=== PATIENT | female | born 1985 | race Caucasian/White ===

== ENCOUNTER 2016-11-26 00:33 | Emergency (ER) | payer OTHER ==
[2016-11-26 00:40] VITALS: BP 120/77; PULSE 85; TEMP 98; BMI 18.8
--- NOTE | 2016-11-26 00:53 | PDOC ---
History of Present Illness - General Chief Complaint: Alcohol intoxication Stated Complaint: ETOH/HEAD INJURY Time Seen by Provider: 11/26/16 00:48 History Source: Patient Exam Limitations: No Limitations - History of Present Illness Initial Comments: 11/26/16 00:49 This is a 30-year-old female who comes in complaining of tripped and fell. Patient was out drinking and tripped and fell resulting in multiple contusions and abrasions to her body. Patient was here with a friend. Patient said she did not pass out. She did not feel any palpitations shortness of breath chest pain nausea diaphoresis or any associated symptoms at the time she passed out. PAST MEDICAL HISTORY: no significant history PAST SURGICAL HISTORY: no significant history FAMILY HISTORY: no pertinant history SOCIAL HISTORY: Pt lives with family and is employed. MEDICATIONS: reviewed ALLERGIES: As per nursing notes Review of Systems General: No fevers or chills, no weakness, no weight loss HEENT: No change in vision. No sore throat,. No ear pain CardioVascular: No chest pain or shortness of breath Respiratory:No cough, or wheezing. Gastrointestinal: no nausea, vomitting, diarrhea or constipation, No rectal bleeding Genitourinary: No dysuria, hematuria, or frequency Musculoskeletal: No joint or muscle pain or swelling Neurologic: No headache, vertigo, dizziness or loss of consciousness Psychiatric: nor depression Skin: No rashes or easy bruising Endocrine: no increased thirst or abnormal weight change Allergic: no skin or latex allergy All other systems reviewed and normal Exam: General: Well-nourished well-developed individual, no acute distress HEENT: Throat: Normal, tonsils normal, no erythema or exudate Neck: Supple, no meningeal signs, no lymphadenopathy Eyes::Pupils equal reactive and round, extraocular motion intact Chest: Nontender to palpation Cardiac: S1-S2 normal, regular rate and rhythm, no murmurs rubs or gallops Respiratory: Lungs clear to auscultation bilateral Abdomen: Soft, nondistended, normal bowel sounds, nontender to palpation diffusely Extremities: Warm, dry, there is multiple superficial abrasions of bilateral upper and lower extremities. Skin: No rashes Neuro: Alert and oriented x3, nonfocal exam, grossly intact, normal gait Psych: Normal mood and affect Assessment and plan this is a 30-year-old female who comes in with her friend second post tripping and fluent. Patient is intoxicated but denies doing any drugs. Patient abrasions were cleaned, there is no lacerations requiring sutures and patient was discharged to the custody of her mother who came to the emergency room. Past History - Past Medical History Allergies/Adverse Reactions: Allergies Allergy/AdvReac Type Severity Reaction Status Date / Time morphine Allergy Mild Hives Verified 07/29/16 00:51 azithromycin [From Zithromax] Allergy Verified 07/28/16 22:13 cefaclor [From Ceclor] Allergy Verified 07/28/16 22:13 Cephalosporins Allergy Verified 07/28/16 22:13 clarithromycin [From Biaxin] Allergy Verified 07/28/16 22:13 haloperidol [From Haldol] Allergy Verified 07/28/16 22:13 haloperidol lactate Allergy Verified 07/28/16 22:13 [From Haldol] moxifloxacin HCl Allergy Verified 07/28/16 22:13 [From Avelox] Penicillins Allergy Verified 07/28/16 22:13 Home Medications: Ambulatory Orders Xanax PRN 11/26/16 Psychiatric Problems: Yes (ANIXETY) - Reproductive History Therapeutic (s) & number: No - Immunization History Immunization Up to Date: Yes - Psycho/Social/Smoking Cessation Hx Anxiety: Yes Suicidal Ideation: No Smoking History: Never smoked Have you smoked in the past 12 months: Yes Number of Cigarettes Smoked Daily: 20 'Breaking Loose' booklet given: 06/24/16 Hx Alcohol Use: Yes Drug/Substance Use Hx: No Substance Use Type: Alcohol, Marijuana *Physical Exam - Vital Signs Last Vital Signs Temp Pulse Resp BP Pulse Ox 98 F 85 16 120/77 99 11/26/16 00:35 11/26/16 00:35 11/26/16 00:35 11/26/16 00:35 11/26/16 00:35 *DC/Admit/Observation/Transfer Diagnosis at time of Disposition: Multiple bruises, Abrasions of multiple sites Alcoholic intoxication Qualifiers: Complication of substance-induced condition: uncomplicated Qualified Code(s): F10.120 - Alcohol abuse with intoxication, uncomplicated - Discharge Dispostion Disposition: HOME Condition at time of disposition: Stable Admit: No - Patient Instructions Additional Instructions: Someone should check on you once tonight during the night. You should be arousable to your Normal level of arousability for that time of the night. If you have been vomiting, have had a seizure, or you are unable to be aroused or the person checking on you is concerned that there has been a change in your mental status they should call 911 and have you brought back to the emergency department. You can take Tylenol as needed for pain. Return to the emergency department immediately with ANY new, persistent or worsening symptoms. Continue any medications as previously prescribed by your physician. You should follow up with your primary doctor as soon as possible regarding today's emergency department visit. . Please make sure your doctor reviews the results of your emergency evaluation. Thank you for coming to the Emergency Department today for your care. It was a pleasure to see you today. Please note that your evaluation is INCOMPLETE until you follow-up with your doctor.
== END 2016-11-26 01:01 | disposition home or self-care (01) ==
LOC: FER 00:33
DX: T14.8 Other injury of unspecified body region (principal); F10.120 Alcohol abuse with intoxication, uncomplicated; F41.9 Anxiety disorder, unspecified; W01.0XXA Fall on same level from slipping, tripping and stumbling without subsequent striking against object, initial encounter; Y93.89 Activity, other specified; Y92.9 Unspecified place or not applicable
CPT/HCPCS: 99282-25

== ENCOUNTER 2017-08-18 17:25 | Emergency (ER) | payer OTHER ==
[2017-08-18 17:53] VITALS: BP 107/82; PULSE 108; TEMP 97.6; BMI 19.7
--- NOTE | 2017-08-18 18:22 | PDOC ---
History of Present Illness - General History Source: Patient Exam Limitations: No Limitations - History of Present Illness Initial Comments: 08/18/17 18:25 The patient is a 31 year old female, with a significant past medical history of substance abuse, ADHD, anxiety, who presents to the emergency department with, ulcers in the nose and mouth for approx. four days. The patient reports she was recently on a 2 week vacation where she used cocaine daily. The patient reports white discharge from the nose/ mouth ulcers. The patient reports this was her first time using cocaine in approx. 8 years. She denies intravenous drug use. The patient reports she had a previous heroin addiction for 9 years (nasal inhalation only, no IV drug use). However, she reports she has not used heroin for the past two years. The patient reports associated symptoms of congestion. She denies recent fevers, chills, headache or dizziness. She denies recent nausea, vomit, diarrhea or constipation. She denies recent chest pain or shortness of breath. Allergies: As per nursing notes. Past surgical history: None reported. Social history: Current everyday smoker. Pt. reports moderate alcohol use. Pt reports recreational drug use (cocaine/ marijuana). Primary Care Physician: Dr. Lim <Jorge Ignacio - Last Filed: 08/18/17 18:25> <Artie Dupree - Last Filed: 08/18/17 18:32> - General Chief Complaint: Oral Ulcers Stated Complaint: SORES IN MOUTH AND NOSE Time Seen by Provider: 08/18/17 18:22 Past History <Jorge Ignacio - Last Filed: 08/18/17 18:25> - Past Medical History COPD: No Psychiatric Problems: Yes (ANIXETY) Other medical history: PREMATURE - Reproductive History Therapeutic (s) & number: No - Immunization History Immunization Up to Date: Yes - Suicide/Smoking/Psychosocial Hx Smoking History: Current every day smoker Have you smoked in the past 12 months: Yes Number of Cigarettes Smoked Daily: 20 Information on smoking cessation initiated: Yes 'Breaking Loose' booklet given: 08/18/17 Hx Alcohol Use: Yes Drug/Substance Use Hx: Yes Substance Use Type: Alcohol, Cocaine, Heroin, Marijuana <Artie Dupree - Last Filed: 08/18/17 18:32> - Past Medical History Allergies/Adverse Reactions: Allergies Allergy/AdvReac Type Severity Reaction Status Date / Time morphine Allergy Mild Hives Verified 08/18/17 17:39 amoxicillin Allergy Verified 08/18/17 17:39 azithromycin [From Zithromax] Allergy Verified 08/18/17 17:39 cefaclor [From Ceclor] Allergy Verified 08/18/17 17:39 Cephalosporins Allergy Verified 08/18/17 17:39 clarithromycin [From Biaxin] Allergy Verified 08/18/17 17:39 haloperidol [From Haldol] Allergy Verified 08/18/17 17:39 haloperidol lactate Allergy Verified 08/18/17 17:39 [From Haldol] moxifloxacin HCl Allergy Verified 08/18/17 17:39 [From Avelox] Penicillins Allergy Verified 08/18/17 17:39 Home Medications: Ambulatory Orders Alprazolam [Xanax] 0 mg PO TID 08/18/17 Dextroamphetamine/Amphetamine [Adderall 10 mg Tablet] 10 mg PO BID 08/18/17 Mupirocin Ointment [Bactroban] 1 applic TP BID #1 tube 08/18/17 Review of Systems - Review of Systems Comments:: 08/18/17 18:25 CONSTITUTIONAL: Absent: fever, no chills, no fatigue EYES: Absent: visual changes ENT: Present: +Congestion Absent: ear pain, no sore throat CARDIOVASCULAR: Absent: chest pain, no palpitations RESPIRATORY: Absent: cough, no SOB GI: Absent: abdominal pain, no nausea, no vomiting, no constipation, no diarrhea GENITOURINARY: Absent: dysuria, no frequency, no hematuria MUSKULOSKELETAL: Absent: back pain, no arthralgia, no myalgia SKIN: Absent: rash NEURO: Absent: headache <Jorge Ignacio - Last Filed: 08/18/17 18:25> *Physical Exam - Vital Signs Last Vital Signs Temp Pulse Resp BP Pulse Ox 97.6 F 108 H 18 107/82 98 08/18/17 17:26 08/18/17 17:26 08/18/17 17:26 08/18/17 17:26 08/18/17 17:26 <Jorge Ignacio - Last Filed: 08/18/17 18:25> - Vital Signs Last Vital Signs Temp Pulse Resp BP Pulse Ox 97.6 F 108 H 18 107/82 98 08/18/17 17:26 08/18/17 17:26 08/18/17 17:26 08/18/17 17:26 08/18/17 17:26 <Artie Dupree - Last Filed: 08/18/17 18:32> Medical Decision Making - Medical Decision Making 08/18/17 18:31 Also ulcerations of the septum due to snorting cocaine daily for approximately 2 weeks. No septal perforation noted. There is still some sinus congestion. The throat is mildly erythematous but there are no lesions, no exudates, no swelling or masses Bactroban prescribed for the nose. Claritin-D, Jennifer-D, or Zyrtec-D for congestion. Advil or Aleve for discomfort. ENT follow-up as needed. <Artie Dupree - Last Filed: 08/18/17 18:32> *DC/Admit/Observation/Transfer - Attestations Scribe Attestion: 08/18/17 18:26 Documentation prepared by Jorge Ignacio, acting as medical stenographer for Artie Dupree MD. <Jorge Ignacio - Last Filed: 08/18/17 18:25> - Discharge Dispostion Admit: No <Artie Dupree - Last Filed: 08/18/17 18:32> Diagnosis at time of Disposition: Ulcerative nasal mucositis - Discharge Dispostion Disposition: HOME Condition at time of disposition: Stable - Prescriptions Prescriptions: Mupirocin Ointment [Bactroban] 1 applic TP BID #1 tube - Referrals Referrals: Jose Collins MD [Staff Physician] - 1 week - Patient Instructions Additional Instructions: Apply ointment twice daily as directed For nasal congestion, Claritin-D or Jennifer-D or Zyrtec-D may be helpful.
== END 2017-08-18 18:28 | disposition home or self-care (01) ==
LOC: FER 17:25
DX: J34.81 Nasal mucositis (ulcerative) (principal); F19.10 Other psychoactive substance abuse, uncomplicated; F90.9 Attention-deficit hyperactivity disorder, unspecified type; F41.9 Anxiety disorder, unspecified
CPT/HCPCS: 99281-25

== ENCOUNTER 2017-11-16 20:00 | Inpatient (IN) | payer OTHER ==
--- NOTE | 2017-11-16 20:02 | PDOC ---
History of Present Illness - General History Source: Patient, EMS, Friend Exam Limitations: No Limitations - History of Present Illness Initial Comments: 11/16/17 20:43 The patient is a 31 year old female, with a significant PMH of substance abuse, ADHD, anxiety, seizures, asthma who presents to the emergency department via EMS s/p overdose. As per EMS, the patient was found unresponsive at home. EMS states they administered Narcan to the patient and she regained consciousness and ambulated to the ambulance. The patient states she took .5 mg of Xanax and approx 3-4 Opana around 2 or 3 pm. She denies any alcohol use. The patient states after taking the pills she laid down to sleep and awoke to EMS (friend had called EMS when he was unable to awaken the patient). The patient states that at presentation she feels like her bowels are hyperactive like she might have diarrhea. The patient reports lightheadedness, headache, tinnitus, shortness of breath and chest tightness. She denies any recent falls or trauma. The patient also reports a productive cough with greenish yellow sputum for 3 days. The patient states she tried taking OTC Robitussin for the cough earlier today. Denies fever, nausea, vomit, diarrhea and constipation. Denies dysuria, frequency, urgency and hematuria. Allergies: Multiple allergies. As per nursing notes. Past surgical history: None reported. Social history: Current everyday smoker 1 pack per day. Moderate EtOH consumption. Recreational drug use (cocaine/ marijuana). PCP: Dr. Lim <Jorge Ignacio - Last Filed: 11/16/17 20:47> <Peggy Padilla - Last Filed: 11/17/17 06:26> - General Chief Complaint: Substance Abuse Stated Complaint: DRUG ABUSE Time Seen by Provider: 11/16/17 20:01 Past History <Jorge Ignacio - Last Filed: 11/16/17 20:47> - Past Medical History COPD: No Psychiatric Problems: Yes (ANIXETY) - Reproductive History Therapeutic (s) & number: No - Immunization History Immunization Up to Date: Yes - Suicide/Smoking/Psychosocial Hx Smoking History: Current every day smoker Have you smoked in the past 12 months: Yes Number of Cigarettes Smoked Daily: 20 'Breaking Loose' booklet given: 08/18/17 Hx Alcohol Use: Yes Drug/Substance Use Hx: Yes Substance Use Type: Alcohol, Cocaine, Heroin, Marijuana <RandyPeggy Cartagena - Last Filed: 11/17/17 06:26> - Past Medical History Allergies/Adverse Reactions: Allergies Allergy/AdvReac Type Severity Reaction Status Date / Time morphine Allergy Mild Hives Verified 08/18/17 17:39 amoxicillin Allergy Verified 08/18/17 17:39 azithromycin [From Zithromax] Allergy Verified 08/18/17 17:39 cefaclor [From Ceclor] Allergy Verified 08/18/17 17:39 Cephalosporins Allergy Verified 08/18/17 17:39 clarithromycin [From Biaxin] Allergy Verified 08/18/17 17:39 haloperidol [From Haldol] Allergy Verified 08/18/17 17:39 haloperidol lactate Allergy Verified 08/18/17 17:39 [From Haldol] moxifloxacin HCl Allergy Verified 08/18/17 17:39 [From Avelox] Penicillins Allergy Verified 08/18/17 17:39 Home Medications: Ambulatory Orders Alprazolam [Xanax] 0 mg PO TID 08/18/17 Dextroamphetamine/Amphetamine [Adderall 10 mg Tablet] 10 mg PO BID 08/18/17 Albuterol Sulfate Inhaler - [Ventolin Hfa Inhaler -] 2 inh PO Q6H PRN 11/16/17 Oxymorphone HCl 11/16/17 Review of Systems - Review of Systems Comments:: 11/16/17 20:43 GENERAL/CONSTITUTIONAL: +Chills. No fever. No weakness. HEAD, EYES, EARS, NOSE AND THROAT: +Tinnitus. No change in vision. No ear pain or discharge. No sore throat. CARDIOVASCULAR: +Chest tightness. +Shortness of breath. No chest pain. RESPIRATORY: +Productive cough. No hemoptysis. GASTROINTESTINAL: No nausea, vomiting, diarrhea or constipation. GENITOURINARY: No dysuria, frequency, or change in urination. MUSCULOSKELETAL: No joint or muscle swelling or pain. No neck or back pain. SKIN: No rash NEUROLOGIC: +Headache. +Lightheadedness. +Loss of consciousness. No vertigo or change in strength/sensation. ENDOCRINE: No increased thirst. No abnormal weight change. HEMATOLOGIC/LYMPHATIC: No anemia, easy bleeding, or history of blood clots. ALLERGIC/IMMUNOLOGIC: No hives or skin allergy. <Jorge Ignacio - Last Filed: 11/16/17 20:47> *Physical Exam - Vital Signs Last Vital Signs Temp Pulse Resp BP Pulse Ox 99.7 F H 136 H 26 H 126/89 95 11/16/17 20:01 11/16/17 20:01 11/16/17 20:01 11/16/17 20:01 11/16/17 20:01 - Physical Exam Comments: 11/16/17 20:43 GENERAL: Awake, alert, and fully oriented. HEAD: No signs of trauma EYES: +Pupils 4 mm briskly reactive, equal. No abnormal nystagmus. ENT: +Dry mucous membranes. Auricles normal inspection, hearing grossly normal, nares patent, oropharynx clear without exudates. NECK: Normal ROM, supple, no lymphadenopathy, JVD, or masses LUNGS: +Bilateral expiratory wheezing. No rales. HEART: Regular rate and rhythm, normal S1 and S2, no murmurs, rubs or gallops ABDOMEN: Soft, nontender. No guarding, no rebound. EXTREMITIES: Normal range of motion, no edema. No clubbing or cyanosis. No cords, erythema, or tenderness NEUROLOGICAL: Cranial nerves II through XII grossly intact. Normal speech, normal gait SKIN: Warm, Dry, normal turgor, no rashes or lesions noted. <Jorge Ignacio - Last Filed: 11/16/17 20:47> ED Treatment Course - LABORATORY CBC & Chemistry Diagram: 11/16/17 20:45 11/16/17 20:45 <Peggy Pdailla - Last Filed: 11/17/17 06:26> Medical Decision Making - Medical Decision Making Documentation has been prepared under my direction and personally reviewed by me in its entirety. I attest that this documented accurately reflects all work, treatment, procedures and medical decision making performed by me. As noted above, this 31-year-old woman with a history of anxiety/depression, drug abuse, asthma was brought in by EMS after Narcan administration. Patient was found by a friend to be unresponsive after taking "street drugs". EMS was called and Narcan given after patient was found to be unresponsive with labored breathing. Patient had immediate improvement in mental status and was able to walk into ambulance. As noted above, the patient admits only to taking Opana and Xanax for "headache" prior to the episode of unresponsiveness. No apparent previous episode of overdose . Also, the patient has had productive cough for approximately 5 days. She states that she has had intermittent wheezing for several years . Although she smokes one pack of cigarettes per day, she states that she has never had a "asthma attack". Exam as noted. Portable chest x-ray shows no evidence of infiltrate/effusion or other acute abnormality 12-lead electrocardiogram on presentation revealed sinus tachycardia at 118 bpm ; there is poor R-wave progression . No acute ST or T-wave abnormalities evident. Laboratory evaluation shows normal white blood cell count; other than macrocytic /hyperchromic indices, no other significant abnormalities of CBC was seen. Lactic acid prior to IV hydration (patient also received 2 L IV normal saline) was 2.2. No evidence of ethanol was found in her work Tox screen notable for presence of benzodiazepine/opioid/PCP/cocaine/marijuana Because of the patient's bronchospasm, DuoNeb nebulizer treatment was given initially, followed by 2 additional treatments when wheezing was noted to be persistent. Solu-Medrol 125 mg IV administered. Patient was given supplemental oxygenation (4 L NC) on presentation with pulse oximetry in the 94-95 range. On room air trial, pulse oximetry 85-90 range. Because of patient's persistent desaturation on room air along with persistent bronchospasm on exam, the patient requires admission for IV steroids, nebulizer treatments, oxygen therapy and observation. Patient's PMD is Dr. Lim 11/17/17 02:09 Case discussed with SOURAV Salazar. In order to fully evaluate patient's persistent hypoxia, ABG/repeat lactic acid/d-dimer will be drawn. Although the patient initially thought that she had taken Opana (oxymorphone), use of pill identity application revealed that the medication that she actually took was OxyContin 60(3 tablets)[round, red tablet with imprint "OP"] along with the Xanax 0.5 mg Poison control called and case discussed with them.: Because of the presence of long acting narcotic, patient should be observed for at least 12 hours. No other specific recommendations given 11/17/17 03:49 Additional results discussed with SOURAV Salazar. Patient will be admitted in observation status, to telemetry bed. Plan discussed with the patient and her mother. They agreed to admission. Patient has that she will not be able to smoke while she is a patient. She requested that a nicotine patch be prescribed while she is admitted and she was told that this was already discussed with admitting provider. Patient was asked regarding multiple substances found on urine tox screen. She states that only opioid and benzodiazepine were taken during the last 24 hours. She states that PCP was used " last week" and cocaine/marijuana use within the last 2-3 days. She states that although she had a narcotics addiction " many years ago", she does not use narcotics on a regular basis currently. The only recreational drugs that she admits to using routinely are alprazolam ( prescribed), alcohol(1 can of [employer] daily ) and marijuana. She agrees that even occasional use of the other drugs is a problem and states she is willing to address this problem. <Peggy Padilla - Last Filed: 11/17/17 06:26> *DC/Admit/Observation/Transfer - Attestations Scribe Attestion: 11/16/17 20:44 Documentation prepared by Jorge Ignacio, acting as medical office technician for Peggy Padilla MD. <Jorge Ignacio - Last Filed: 11/16/17 20:47> - Discharge Dispostion Admit: Yes <Peggy Padilla - Last Filed: 11/17/17 06:26> Diagnosis at time of Disposition: Drug overdose Acute asthma exacerbation Qualifiers: Asthma severity: moderate Asthma persistence: unspecified Qualified Code(s): J45.901 - Unspecified asthma with (acute) exacerbation - Discharge Dispostion Condition at time of disposition: Guarded
[2017-11-16] MEDS ORDERED: SODIUM CHLORIDE 1,000 ML IV STA (20:08)
[2017-11-16] MEDS ORDERED: ALBUTEROL SO4 2.5/IPRATROPIUM 0.5 INH SOL 3 ML VIAL.NEB. NEB ONE ×4 (20:38→22:00)
[2017-11-16 21:08] LABS: BASO % 2.1 % (0-2.0); EOS % 0.2 % (0-4.5); HEMATOCRIT 38.3 % (32.4-45.2); HEMOGLOBIN 13.4 GM/dl (10.7-15.3); LYMPH % 4.2 % (8-40); MCH 35.3 pg (25.7-33.7); MEAN CELL VOLUME 100.8 fl (80-96); MEAN PLT VOLUME 6.9 fl (7.5-11.1); MONO % 5.2 % (3.8-10.2); NEUT % 88.3 % (42.8-82.8); PLATELET COUNT 221 K/MM3 (134-434); RDW 12.6 % (11.6-15.6); WHITE BLOOD COUNT 9.6 K/mm3 (4.0-10.8)
[2017-11-16 21:21] LABS: ALBUMIN 3.5 g/dl (3.5-5.0); ALK PHOS 84 U/L (32-92); ANION GAP 6 (8-16); BILIRUBIN,TOTAL 0.8 mg/dl (0.2-1.0); CHLORIDE 92 mmol/L (98-107); CO2 33 mmol/L (22-28); CREATININE 0.8 mg/dl (0.6-1.3); GLUCOSE,RANDOM 128 mg/dl (74-106); POTASSIUM 3.7 mmol/L (3.5-5.1); SGOT/AST 33 U/L (10-42); SGPT/ALT 23 U/L (10-40); SODIUM 131 mmol/L (136-145); TOT PROT 6.4 g/dl (6.4-8.3)
[2017-11-16 21:35] LABS: BLOOD UREA NITROGEN < 6 mg/dl (7-18)
[2017-11-16 21:36] LABS: URINE APPEARANCE Clear; URINE BILIRUBIN Negative (NEGATIVE); URINE BLOOD Negative (NEGATIVE); URINE GLUCOSE (UA) 1+ (NEGATIVE); URINE KETONE Negative (NEGATIVE); URINE LEUK ESTERASE Negative (NEGATIVE); URINE NITRITE Negative (NEGATIVE); URINE PROTEIN Trace (NEGATIVE)
[2017-11-16 21:37] LABS: URINE COLOR YELLOW
[2017-11-16 22:31] LABS: METHADONE, UR NEGATIVE ng/ml (CUTOFF=300); URINE AMPHETAMINES NEGATIVE ng/ml (CUTOFF=500); URINE BARBITURATES NEGATIVE ng/ml (CUTOFF=200)
[2017-11-16 22:32] LABS: URINE BENZODIAZEPINES POSITIVE ng/ml (CUTOFF=200)
[2017-11-16 22:33] LABS: COCAINE, UR POSITIVE ng/ml (CUTOFF=300); OPIATES, URI POSITIVE ng/ml (CUTOFF=300); PHENCYCLIDINE,URINE POSITIVE ng/ml (CUTOFF=25)
[2017-11-17] MEDS ORDERED: methylPREDNISolone NA SUCC 125 MG/2 ML VIAL IVPB ONE (00:01)
[2017-11-17] MEDS ORDERED: methylPREDNISolone NA SUCC 125 MG/2 ML VIAL ONE (00:11)
[2017-11-17] MEDS ORDERED: ALBUTEROL SO4 2.5/IPRATROPIUM 0.5 INH SOL 3 ML VIAL.NEB. NEB ONE ×2 (00:11)
[2017-11-17 02:16] LABS: ARTERIAL BLD GAS O2 SATURATION 97.7 % (90-98.9); ARTERIAL BLOOD GAS BASE EXCESS 3.3 meq/l (-2-2); ARTERIAL BLOOD GAS PCO2 42.6 mmHg (35-45); ARTERIAL BLOOD GAS pH 7.43 (7.35-7.45)
[2017-11-17] MEDS ORDERED: SODIUM CHLORIDE 1,000 ML IV SCH (04:00)
[2017-11-17] MEDS ORDERED: MAGNESIUM SULF 50% (8.12 MEQ/2 ML-1 GM VIAL) IVPB ONE (04:26)
[2017-11-17] MEDS: NICOTINE 14 MG/24 HOURS TOPICAL PATCH TD SCH ×2 (04:39→09:09)
[2017-11-17 05:12] VITALS: BMI 22.4
--- NOTE | 2017-11-17 07:16 | HP ---
Admitting History and Physical - Past Medical History ...LMP: 05/31/16 - Smoking History Smoking history: Current every day smoker Have you smoked in the past 12 months: Yes Aproximately how many cigarettes per day: 20 - Alcohol/Substance Use Hx Alcohol Use: Yes Home Medications - Allergies Allergies/Adverse Reactions: Allergies Allergy/AdvReac Type Severity Reaction Status Date / Time morphine Allergy Mild Hives Verified 08/18/17 17:39 amoxicillin Allergy Verified 08/18/17 17:39 azithromycin [From Zithromax] Allergy Verified 08/18/17 17:39 cefaclor [From Ceclor] Allergy Verified 08/18/17 17:39 Cephalosporins Allergy Verified 08/18/17 17:39 clarithromycin [From Biaxin] Allergy Verified 08/18/17 17:39 haloperidol [From Haldol] Allergy Verified 08/18/17 17:39 haloperidol lactate Allergy Verified 08/18/17 17:39 [From Haldol] moxifloxacin HCl Allergy Verified 08/18/17 17:39 [From Avelox] Penicillins Allergy Verified 08/18/17 17:39 - Home Medications Home Medications: Ambulatory Orders Alprazolam [Xanax] 0 mg PO TID 08/18/17 Dextroamphetamine/Amphetamine [Adderall 10 mg Tablet] 10 mg PO BID 08/18/17 Albuterol Sulfate Inhaler - [Ventolin Hfa Inhaler -] 2 inh PO Q6H PRN 11/16/17 Oxymorphone HCl 11/16/17 Physical Examination Vital Signs: Vital Signs Temperature 99.5 F 11/17/17 03:50 Pulse Rate 74 11/17/17 03:50 Respiratory Rate 18 11/17/17 03:50 Blood Pressure 110/58 11/17/17 03:50 O2 Sat by Pulse Oximetry (%) 93 L 11/17/17 03:50 Labs: CBC, BMP 11/16/17 20:45 11/16/17 20:45
[2017-11-17] MEDS: ALBUTEROL SO4 2.5/IPRATROPIUM 0.5 INH SOL 3 ML VIAL.NEB. NEB SCH ×4 (08:04→21:40)
[2017-11-17] MEDS ORDERED: ALPRAZolam 1 MG TABLET PO PRN (08:58)
[2017-11-17] MEDS ORDERED: methylPREDNISolone NA SUCC 40 MG/1 ML VIAL IVPUSH SCH ×2 (09:00→10:00)
[2017-11-17 09:24] LABS: ANION GAP 7 (8-16); CALCIUM 7.8 mg/dl (8.4-10.2); CHLORIDE 96 mmol/L (98-107); CO2 30 mmol/L (22-28); GLUCOSE,RANDOM 172 mg/dl (74-106); POTASSIUM 3.9 mmol/L (3.5-5.1); SODIUM 133 mmol/L (136-145)
[2017-11-17] MEDS: FAMOTIDINE 20 MG TABLET PO SCH ×2 (09:33→21:40)
[2017-11-17] MEDS: methylPREDNISolone NA SUCC 40 MG/1 ML VIAL IVPUSH SCH ×3 (09:34→21:40)
[2017-11-17 09:37] LABS: BLOOD UREA NITROGEN < 6 mg/dl (7-18); CREATININE < 0.8 mg/dl (0.6-1.3)
--- NOTE | 2017-11-17 09:50 | HP ---
CHIEF COMPLAINT: lethargic w/hypoxia PCP: Dr Lim HISTORY OF PRESENT ILLNESS: Patient is a 31 y/o female with a past medical history of asthma, anxiety, adhd, and polysubstance abuse. Patient reports ongoing cough with productive sputum for the past 4 days. She reports the cough was worsening within the past 24 hours and developed pain to the center of the chest after coughing. Patient admits to taking 60mg of oxycontin that she acquired from a friend and her prescribed dose of xanax last evening. She reports laying down to sleep and was awakened by EMS after being administered Narcan. She admits to smoking marijuana and tobacco daily, in addition, she last snorted cocaine 2 days ago. 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 Smokin pack a day of tobacco and addition to daily marijuana use Alcohol:daily drinks "several glasses of mixed drinks" Drugs: cocaine, oxycontin, marijuana Family History: non contributory to this admission Allergies morphine Allergy (Mild, Verified 08/18/17 17:39) Hives amoxicillin Allergy (Verified 08/18/17 17:39) azithromycin [From Zithromax] Allergy (Verified 08/18/17 17:39) cefaclor [From Ceclor] Allergy (Verified 08/18/17 17:39) Cephalosporins Allergy (Verified 08/18/17 17:39) clarithromycin [From Biaxin] Allergy (Verified 08/18/17 17:39) haloperidol [From Haldol] Allergy (Verified 08/18/17 17:39) haloperidol lactate [From Haldol] Allergy (Verified 08/18/17 17:39) moxifloxacin HCl [From Avelox] Allergy (Verified 08/18/17 17:39) Penicillins Allergy (Verified 08/18/17 17:39) HOME MEDICATIONS: Home Medications Medication Instructions Recorded Alprazolam [Xanax] 0 mg PO TID 08/18/17 Dextroamphetamine/Amphetamine 10 mg PO BID 08/18/17 [Adderall 10 mg Tablet] Albuterol Sulfate Inhaler - 2 inh PO Q6H PRN 11/16/17 [Ventolin Hfa Inhaler -] Oxymorphone HCl 11/16/17 REVIEW OF SYSTEMS CONSTITUTIONAL: Absent: fever, chills, diaphoresis, generalized weakness, malaise, loss of appetite, weight change HEENT: Absent: rhinorrhea, nasal congestion, throat pain, throat swelling, difficulty swallowing, mouth swelling, ear pain, eye pain, visual changes CARDIOVASCULAR: Absent: chest pain, syncope, palpitations, irregular heart rate, lightheadedness , peripheral edema RESPIRATORY: present: cough, shortness of breath, wheezing, Absent: dyspnea with exertion, orthopnea,stridor, hemoptysis GASTROINTESTINAL: Absent: abdominal pain, abdominal distension, nausea, vomiting, diarrhea, constipation, melena, hematochezia GENITOURINARY: Absent: dysuria, frequency, urgency, hesitancy, hematuria, flank pain, genital pain MUSCULOSKELETAL: Absent: myalgia, arthralgia, joint swelling, back pain, neck pain SKIN: Absent: rash, itching, pallor HEMATOLOGIC/IMMUNOLOGIC: Absent: easy bleeding, easy bruising, lymphadenopathy, frequent infections ENDOCRINE: Absent: unexplained weight gain, unexplained weight loss, heat intolerance, cold intolerance NEUROLOGIC: Absent: headache, focal weakness or paresthesias, dizziness, unsteady gait, seizure, mental status changes, bladder or bowel incontinence PSYCHIATRIC: Absent: anxiety, depression, suicidal or homicidal ideation, hallucinations. PHYSICAL EXAMINATION Vital Signs - 24 hr 11/16/17 11/16/17 11/16/17 20:01 20:06 20:07 Temperature 99.7 F H Pulse Rate 136 H 136 H Pulse Rate [ Radial] Respiratory 26 H Rate Blood Pressure 126/89 Blood Pressure [Arm] O2 Sat by Pulse 95 80 L 95 Oximetry (%) 11/16/17 11/16/17 11/17/17 21:45 23:32 00:00 Temperature Pulse Rate 105 H Pulse Rate [ 99 H Radial] Respiratory 18 18 Rate Blood Pressure Blood Pressure [Arm] O2 Sat by Pulse 92 L 94 L 85 L Oximetry (%) 11/17/17 11/17/17 11/17/17 00:34 03:49 03:50 Temperature 99.5 F 99.5 F Pulse Rate 74 Pulse Rate [ 90 Radial] Respiratory 18 Rate Blood Pressure 110/58 Blood Pressure 105/75 [Arm] O2 Sat by Pulse 93 L 93 L 93 L Oximetry (%) 11/17/17 08:35 Temperature 97.6 F Pulse Rate 86 Pulse Rate [ Radial] Respiratory 18 Rate Blood Pressure 116/67 Blood Pressure [Arm] O2 Sat by Pulse Oximetry (%) GENERAL: disheveled, poor hygiene, Awake, alert, and fully oriented, in no acute distress. HEAD: Normal with no signs of trauma. EYES: Pupils equal, round and reactive to light, extraocular movements intact, sclera anicteric, conjunctiva clear. No lid lag. EARS, NOSE, THROAT: Ears normal, nares patent, oropharynx clear without exudates. Moist mucous membranes. NECK: Normal range of motion, supple without lymphadenopathy, JVD, or masses. LUNGS: Breath sounds equal, bilateral inspiratory wheeze to apexes, diminished to bases, rr 22, no crackles. No accessory muscle use. HEART: Regular rate and rhythm, normal S1 and S2 without murmur, rub or gallop. ABDOMEN: Soft, nontender, not distended, normoactive bowel sounds, no guarding, no rebound, no masses. No hepatomegaly or splenomegaly. MUSCULOSKELETAL: Normal range of motion at all joints. No bony deformities or tenderness. No CVA tenderness. UPPER EXTREMITIES: 2+ pulses, warm, well-perfused. No cyanosis. No clubbing. No peripheral edema. LOWER EXTREMITIES: 2+ pulses, warm, well-perfused. No calf tenderness. No peripheral edema. NEUROLOGICAL: Cranial nerves II-XII intact. Normal speech. Normal gait. PSYCHIATRIC: Cooperative. Good eye contact. Appropriate mood and affect. SKIN: Warm, dry, normal turgor, no rashes or lesions noted, normal capillary refill. Laboratory Results - last 24 hr 11/16/17 11/16/17 11/16/17 20:45 20:45 20:45 WBC 9.6 D RBC 3.80 Hgb 13.4 D Hct 38.3 D MCV 100.8 H MCH 35.3 H MCHC 35.0 RDW 12.6 Plt Count 221 MPV 6.9 L Neutrophils % 88.3 H Lymphocytes % 4.2 L Monocytes % 5.2 Eosinophils % 0.2 Basophils % 2.1 H D-Dimer Anticoagulation Therapy Puncture Site ABG pH ABG pCO2 at Pt Temp ABG pO2 at Pt Temp ABG HCO3 ABG O2 Sat (Measured) ABG O2 Content ABG Base Excess Taj Test O2 Delivery Device Oxygen Flow Rate Vent Mode Vent Rate Mechanical Rate Pressure Support Vent Sodium 131 L Potassium 3.7 Chloride 92 L Carbon Dioxide 33 H D Anion Gap 6 L BUN < 6 L D Creatinine 0.8 Creat Clearance w eGFR > 60 Random Glucose 128 H D Lactic Acid Calcium 8.0 L Total Bilirubin 0.8 D AST 33 ALT 23 D Alkaline Phosphatase 84 D Total Protein 6.4 Albumin 3.5 Urine Color Urine Appearance Urine pH Ur Specific [place] Urine Protein Urine Glucose (UA) Urine Ketones Urine Blood Urine Nitrite Urine Bilirubin Urine Urobilinogen Ur Leukocyte Esterase Urine HCG, Qual Opiates Screen Methadone Screen Barbiturate Screen Phencyclidine Screen Ur Amphetamines Screen MDMA (Ecstasy) Screen Benzodiazepines Screen Cocaine Screen U Marijuana (THC) Screen Alcohol, Quantitative < 5.0 11/16/17 11/16/17 11/16/17 20:45 21:20 21:20 WBC RBC Hgb Hct MCV MCH MCHC RDW Plt Count MPV Neutrophils % Lymphocytes % Monocytes % Eosinophils % Basophils % D-Dimer Anticoagulation Therapy Puncture Site ABG pH ABG pCO2 at Pt Temp ABG pO2 at Pt Temp ABG HCO3 ABG O2 Sat (Measured) ABG O2 Content ABG Base Excess Taj Test O2 Delivery Device Oxygen Flow Rate Vent Mode Vent Rate Mechanical Rate Pressure Support Vent Sodium Potassium Chloride Carbon Dioxide Anion Gap BUN Creatinine Creat Clearance w eGFR Random Glucose Lactic Acid 2.2 H* Calcium Total Bilirubin AST ALT Alkaline Phosphatase Total Protein Albumin Urine Color Yellow Urine Appearance Clear Urine pH 6.0 Ur Specific [place] 1.020 Urine Protein Trace Urine Glucose (UA) 1+ H Urine Ketones Negative Urine Blood Negative Urine Nitrite Negative Urine Bilirubin Negative Urine Urobilinogen 1.0 Ur Leukocyte Esterase Negative Urine HCG, Qual Negative Opiates Screen Methadone Screen Barbiturate Screen Phencyclidine Screen Ur Amphetamines Screen MDMA (Ecstasy) Screen Benzodiazepines Screen Cocaine Screen U Marijuana (THC) Screen Alcohol, Quantitative 11/16/17 11/17/17 11/17/17 21:20 01:30 01:40 WBC RBC Hgb Hct MCV MCH MCHC RDW Plt Count MPV Neutrophils % Lymphocytes % Monocytes % Eosinophils % Basophils % D-Dimer Anticoagulation Therapy No Result Required. Puncture Site No Result Required. ABG pH 7.43 ABG pCO2 at Pt Temp 42.6 ABG pO2 at Pt Temp 86.0 ABG HCO3 27.5 H ABG O2 Sat (Measured) 97.7 ABG O2 Content 15.2 ABG Base Excess 3.3 H Taj Test No Result Required. O2 Delivery Device No Result Required. Oxygen Flow Rate No Result Required. Vent Mode No Result Required. Vent Rate No Result Required. Mechanical Rate No Result Required. Pressure Support Vent No Result Required. Sodium Potassium Chloride Carbon Dioxide Anion Gap BUN Creatinine Creat Clearance w eGFR Random Glucose Lactic Acid 2.1 H Calcium Total Bilirubin AST ALT Alkaline Phosphatase Total Protein Albumin Urine Color Urine Appearance Urine pH Ur Specific [place] Urine Protein Urine Glucose (UA) Urine Ketones Urine Blood Urine Nitrite Urine Bilirubin Urine Urobilinogen Ur Leukocyte Esterase Urine HCG, Qual Opiates Screen Positive Methadone Screen Negative Barbiturate Screen Negative Phencyclidine Screen Positive Ur Amphetamines Screen Negative MDMA (Ecstasy) Screen Negative Benzodiazepines Screen Positive Cocaine Screen Positive U Marijuana (THC) Screen Positive Alcohol, Quantitative 11/17/17 01:40 WBC RBC Hgb Hct MCV MCH MCHC RDW Plt Count MPV Neutrophils % Lymphocytes % Monocytes % Eosinophils % Basophils % D-Dimer 355 Anticoagulation Therapy Puncture Site ABG pH ABG pCO2 at Pt Temp ABG pO2 at Pt Temp ABG HCO3 ABG O2 Sat (Measured) ABG O2 Content ABG Base Excess Taj Test O2 Delivery Device Oxygen Flow Rate Vent Mode Vent Rate Mechanical Rate Pressure Support Vent Sodium Potassium Chloride Carbon Dioxide Anion Gap BUN Creatinine Creat Clearance w eGFR Random Glucose Lactic Acid Calcium Total Bilirubin AST ALT Alkaline Phosphatase Total Protein Albumin Urine Color Urine Appearance Urine pH Ur Specific [place] Urine Protein Urine Glucose (UA) Urine Ketones Urine Blood Urine Nitrite Urine Bilirubin Urine Urobilinogen Ur Leukocyte Esterase Urine HCG, Qual Opiates Screen Methadone Screen Barbiturate Screen Phencyclidine Screen Ur Amphetamines Screen MDMA (Ecstasy) Screen Benzodiazepines Screen Cocaine Screen U Marijuana (THC) Screen Alcohol, Quantitative ASSESSMENT/PLAN: 1) pulm asthma exacerbation - start solumedrol 40mg qid, with taper as appropriate, symbicort, and standing duonebs - keep spo2 above 92% with supplemental O2 - appreciate pulmonary input 2) psych etoh abuse - patient admits to drinking "several" mixed drinks daily - observe signs of etoh withdrawl poly substance abuse -appreciate the input of Dr Arango addictions specialist anxiety - continue home xanax 1mg tid, medication verified with [facility] [employer] reference # [id number] adhd - patient takes adderall 10mg bid, patient to bring in home medication f/e/n - regular diet - replete lytes prn ppx - lonenox - pepcid - oob - scd dispo: pt requries obsv admission Visit type - Emergency Visit Emergency Visit: Yes ED Registration Date: 11/18/17 Care time: The patient presented to the Emergency Department on the above date and was hospitalized for further evaluation of their emergent condition. - New Patient This patient is new to me today: Yes Date on this admission: 11/20/17 - Critical Care Critical Care patient: No Hospitalist Screening - Colonoscopy Questionnaire Colonoscopy Questionnaire: Colonoscopy Questionnaire - Patient: 50 - 75 years old and never had a screening colonoscopy: No History of colon or rectal polyps, or CA: No History of IBD, Crohn's disease or UC: No History of abdominal radiation therapy as a child: No - Relative: 1 with colon or rectal CA, or polyps at age 60 or younger: No Colon or rectal CA diagnosed at age 45 or younger: No Multiple relatives with colon or rectal CA: No - Outcome: Screening Result: Negative Screen
[2017-11-17] MEDS ORDERED: FOLIC ACID INJECTION - 1 MG, THIAMINE HCL 100 MG, MULTIVIT INJECTION ADULT 10 ML in SOD... IVPB ONE (10:29)
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
[2017-11-17] MEDS ORDERED: ALBUTEROL SO4 18 GM HFA INHALER IH PRN ×2 (11:11→16:02)
[2017-11-17] MEDS: ENOXAPARIN NA (PORCINE) 40 MG/0.4 ML DISP.SYRIN SQ SCH (12:50)
--- NOTE | 2017-11-17 16:11 | CON.PULM ---
Consult Consult Specialty:: PULMONARY Referred by:: TERRY Reason for Consultation:: ASTHMA - History of Present Illness Chief Complaint: SOB/COUGH/WHEEZE History of Present Illness: The patient is a 31 year old female, with a significant PMH of substance abuse, ADHD, anxiety, seizures, asthma who presents to the emergency department via EMS s/p overdose. As per EMS, the patient was found unresponsive at home. EMS states they administered Narcan to the patient and she regained consciousness and ambulated to the ambulance. The patient states she took .5 mg of Xanax and approx 3-4 Opana around 2 or 3 pm. She denies any alcohol use. The patient states after taking the pills she laid down to sleep and awoke to EMS (friend had called EMS when he was unable to awaken the patient). The patient states that at presentation she feels like her bowels are hyperactive like she might have diarrhea. The patient reports lightheadedness, headache, tinnitus, shortness of breath and chest tightness. She denies any recent falls or trauma. The patient also reports a productive cough with greenish yellow sputum for 3 days. The patient states she tried taking OTC Robitussin for the cough earlier today. 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 No: Previously Intubated Gastrointestinal: No: Ascites Hepatobiliary: No: Cirrhosis Renal/: No: Renal Failure ...LMP: 05/31/16 Heme/Onc: No: Anemia Psych: Yes: Addictions - Alcohol/Substance Use Hx Alcohol Use: Yes - Smoking History Smoking history: Current every day smoker Have you smoked in the past 12 months: Yes Aproximately how many cigarettes per day: 20 Home Medications - Allergies Allergies/Adverse Reactions: Allergies Allergy/AdvReac Type Severity Reaction Status Date / Time morphine Allergy Mild Hives Verified 08/18/17 17:39 amoxicillin Allergy Verified 08/18/17 17:39 azithromycin [From Zithromax] Allergy Verified 08/18/17 17:39 cefaclor [From Ceclor] Allergy Verified 08/18/17 17:39 Cephalosporins Allergy Verified 08/18/17 17:39 clarithromycin [From Biaxin] Allergy Verified 08/18/17 17:39 haloperidol [From Haldol] Allergy Verified 08/18/17 17:39 haloperidol lactate Allergy Verified 08/18/17 17:39 [From Haldol] moxifloxacin HCl Allergy Verified 08/18/17 17:39 [From Avelox] Penicillins Allergy Verified 08/18/17 17:39 - Home Medications Home Medications: Ambulatory Orders Alprazolam [Xanax] 0 mg PO TID 08/18/17 Dextroamphetamine/Amphetamine [Adderall 10 mg Tablet] 10 mg PO BID 08/18/17 Albuterol Sulfate Inhaler - [Ventolin Hfa Inhaler -] 2 inh PO Q6H PRN 11/16/17 Oxymorphone HCl 11/16/17 Family Disease History - Family Disease History Family Disease History: Respiratory: Mother Review of Systems - Review of Systems Constitutional: reports: Lethargy, Weakness. denies: Chills, Fever Eyes: denies: Blurred Vision HENT: denies: Difficult Swallowing Neck: denies: Decreased ROM Cardiovascular: reports: Shortness of Breath. denies: Chest Pain Respiratory: reports: Cough, Exercise Intolerance, SOB, SOB on Exertion, Wheezing. denies: Hemoptysis Gastrointestinal: denies: Abdominal Pain Physical Exam Vital Sings: Vital Signs Temperature 97.6 F 11/17/17 08:35 Pulse Rate 88 11/17/17 14:26 Respiratory Rate 18 11/17/17 14:26 Blood Pressure 106/65 11/17/17 14:26 O2 Sat by Pulse Oximetry (%) 81 L 11/17/17 14:26 Constitutional: Yes: Anxious Eyes: Yes: EOM Intact HENT: Yes: Normocephalic Neck: Yes: Trachea Midline Cardiovascular: Yes: Regular Rate and Rhythm Respiratory: Yes: Rhonchi, Wheezes Gastrointestinal: Yes: Normal Bowel Sounds, Soft Edema: No Neurological: Yes: Alert Labs: CBC, BMP 11/16/17 20:45 11/17/17 07:30 ABG Results ABG pH 7.43 (7.35-7.45) 11/17/17 01:30 ABG pCO2 at Pt Temp 42.6 mmHg (35-45) 11/17/17 01:30 ABG pO2 at Pt Temp 86.0 mmHg (80-100) 11/17/17 01:30 ABG HCO3 27.5 meq/L (22-26) H 11/17/17 01:30 ABG O2 Sat (Measured) 97.7 % (90-98.9) 11/17/17 01:30 ABG O2 Content 15.2 % vol (15-22) 11/17/17 01:30 ABG Base Excess 3.3 meq/l (-2-2) H 11/17/17 01:30 REVIEWED Imaging - Results Chest X-ray: Report Reviewed, Image Reviewed Cat Scan: Report Reviewed Problem List - Problems (1) Acute asthma exacerbation Code(s): J45.901 - UNSPECIFIED ASTHMA WITH (ACUTE) EXACERBATION Qualifiers: Asthma severity: moderate Asthma persistence: unspecified Qualified Code( s): J45.901 - Unspecified asthma with (acute) exacerbation (2) Drug overdose Code(s): T50.901A - POISONING BY UNSP DRUG/MEDS/BIOL SUBST, ACCIDENTAL, INIT (3) Alcohol intoxication Code(s): F10.129 - ALCOHOL ABUSE WITH INTOXICATION, UNSPECIFIED Qualifiers: Complication of substance-induced condition: uncomplicated (4) Anxiety Code(s): F41.9 - ANXIETY DISORDER, UNSPECIFIED Assessment/Plan A/E B.ASTHMA OVERDOSE/OPIATES/COCAINE/MARIJUANA SOLUMEDROL/KASI/LAMA/ICS DAILY PEAK FLOW/O2 SUPPLEMENTATION MULTIPLE ANTIBIOTIC ALLERGIES NOTED OBTAIN SPUTUM GRAM STAIN/CULTURE CAN USE SULFA BASED ABS IF NEEDED Nela SUE MD
--- NOTE | 2017-11-17 17:11 | CON.PSY ---
Psychiatry Consult Chief Complaint: Patient seen for anxiety. History nof xanax and she took moms opana by mistake. She denies any suicidal ideas ot plans. Symptoms: reports: Anxiety - Previous Psychiatric Treatment Outpatient: Less than 6 mos ago Inpatient: None - Previous Substance Abuse Treatment Outpatient: None Inpatient: None - Reason for Previous Treatment Reason for Previous Treatment: Anxiety or Panic Disorder, Attention Deficit - Current Medications Current Medications: Active Medications Albuterol Sulfate (Ventolin Hfa Inhaler -) 2 puff IH Q1H PRN PRN Reason: WHEEZING Albuterol/Ipratropium (Duoneb -) 1 amp NEB RQID [facility] Last Admin: 11/17/17 11:17 Dose: 1 amp Alprazolam (Xanax) 1 mg PO Q8H PRN PRN Reason: ANXIETY Last Admin: 11/17/17 11:03 Dose: 1 mg Enoxaparin Sodium (Lovenox -) 40 mg SQ DAILY [facility] Last Admin: 11/17/17 12:50 Dose: 40 mg Famotidine (Pepcid -) 20 mg PO BID [facility] Last Admin: 11/17/17 09:33 Dose: 20 mg Folic Acid 1 mg/ Thiamine HCl 100 mg/ Multivitamins/Minerals 10 ml/ Sodium Chloride 1,000 mls @ 75 mls/hr IVPB ONCE ONE Stop: 11/17/17 23:48 Last Admin: 11/17/17 11:03 Dose: 75 mls/hr Methylprednisolone Sodium Succinate (Solu-Medrol -) 40 mg IVPUSH Q6H-IV [facility] Last Admin: 11/17/17 15:31 Dose: 40 mg Nicotine (Nicoderm Patch -) 14 mg TD DAILY [facility] Last Admin: 11/17/17 09:09 Dose: Not Given Multivit/Folic Acid/Iron ( Vitamins (Sjr) -) 1 tab PO DAILY [facility] Thiamine HCl (Vitamin B1 -) 100 mg PO [facility] - Allergies Allergies: Allergies Allergy/AdvReac Type Severity Reaction Status Date / Time morphine Allergy Mild Hives Verified 08/18/17 17:39 amoxicillin Allergy Verified 08/18/17 17:39 azithromycin [From Zithromax] Allergy Verified 08/18/17 17:39 cefaclor [From Ceclor] Allergy Verified 08/18/17 17:39 Cephalosporins Allergy Verified 08/18/17 17:39 clarithromycin [From Biaxin] Allergy Verified 08/18/17 17:39 haloperidol [From Haldol] Allergy Verified 08/18/17 17:39 haloperidol lactate Allergy Verified 08/18/17 17:39 [From Haldol] moxifloxacin HCl Allergy Verified 08/18/17 17:39 [From Avelox] Penicillins Allergy Verified 08/18/17 17:39 - Current Living Status Usual Living Arrangement: With Parent - Current Mental Status Evaluation Appearance: Well Groomed Attitude: Cooperative - Affect Affect: Constrictive Appropriateness: Appropriate to Content - Mood Mood: Anxious - Speech/Language Expressive: Coherent - Psychomotor Activity Psychomotor Activity: Slowed - Thought Process Thought Process: Intact - Thought Content Hallucinations: Absent Delusions: Absent - Self Perception Self Perception: No Impairment - Cognition Attention: Alert Orientation: Time Memory, Immediate Recall: Intact Memory, Short Term: 3/3 Memory, Remote with Promptin/3 - Concentration Serial Sevens Intact: Yes Simple Calculations Intact: Yes - Abstraction Proverb Interpretation: Intact Judgement: Minimally Impaired - Insight Insight: Intact - Impulse Control Impulse Control: Minimally Impaired - Suicidal Ideation Suicidal Ideation: No - Homicidal Ideation Homicidal Ideation: No Assessment/Plan 1) No further Psych meds needed, Continue with Xanax. 2) will follow up with [facility] upon Discharge.
[2017-11-17] MEDS ORDERED: chlordiazePOXIDE HCL 25 MG CAPSULE PO PRN (19:35)
[2017-11-17] MEDS ORDERED: NICOTINE POLACRILEX 2 MG GUM BUC PRN (19:39)
[2017-11-17] MEDS ORDERED: chlordiazePOXIDE HCL 25 MG CAPSULE PO ONE (20:00)
[2017-11-17] MEDS: NICOTINE 21 MG/24 HOURS TOPICAL PATCH TD SCH (21:02)
[2017-11-17] MEDS: THIAMINE HCL 100 MG TABLET (FP) PO SCH (21:40)
[2017-11-17] MEDS: chlordiazePOXIDE HCL 25 MG CAPSULE PO SCH (22:43)
[2017-11-18] MEDS: methylPREDNISolone NA SUCC 40 MG/1 ML VIAL IVPUSH SCH ×4 (02:00→21:21)
[2017-11-18] MEDS: guaiFENesin 200 MG/10 ML 10 ML UNIT-DOSE CUPS PO PRN ×4 (04:33→23:29)
[2017-11-18] MEDS: chlordiazePOXIDE HCL 25 MG CAPSULE PO SCH ×4 (06:00→22:43)
--- NOTE | 2017-11-18 08:51 | EKG ---
Test Reason : Blood Pressure : / mmHG Vent. Rate : 118 BPM Atrial Rate : 118 BPM P-R Int : 124 ms QRS Dur : 072 ms QT Int : 326 ms P-R-T Axes : 073 074 048 degrees QTc Int : 456 ms SINUS TACHYCARDIA POSSIBLE LEFT ATRIAL ENLARGEMENT SEPTAL INFARCT , AGE UNDETERMINED ABNORMAL ECG NO PREVIOUS ECGS AVAILABLE Confirmed by TANIYA LARRY, JANET ([id number]) on 11/18/2017 8:50:42 AM Referred By: DR PETTIT Confirmed By:JANET MONAHAN MD
[2017-11-18] MEDS: ALBUTEROL SO4 2.5/IPRATROPIUM 0.5 INH SOL 3 ML VIAL.NEB. NEB SCH ×4 (08:54→20:05)
[2017-11-18] MEDS: NICOTINE 21 MG/24 HOURS TOPICAL PATCH TD SCH (09:33)
[2017-11-18] MEDS: FAMOTIDINE 20 MG TABLET PO SCH ×2 (09:33→21:21)
[2017-11-18] MEDS: ENOXAPARIN NA (PORCINE) 40 MG/0.4 ML DISP.SYRIN SQ SCH (09:34)
[2017-11-18] MEDS: PRENATAL VITAMINS W/ FOLIC ACID TABLET (FP) PO SCH (09:37)
--- NOTE | 2017-11-18 11:47 | DS ---
Physical Exam: SUBJECTIVE: Patient seen and examined. Pt states she did not sleep well, she wants to go home, she will see her doctor on monday and is deciding to leave AMA OBJECTIVE: Vital Signs Period Temp Pulse Resp BP Sys/Pratt Pulse Ox Last 24 Hr 98.3 F-98.5 F 73-88 18-19 105-125/59-83 81-96 PE Neuro: alert, awake, cn 2-12intact Pulm: wheezing, + cough CV: s1 s2 rrr no mrg Abd: s nt nd + bs Ext: warm no le edema Laboratory Results - last 24 hr 11/17/17 07:30 Acetaminophen < 2.000 HOSPITAL COURSE: Date of Admission:11/17/17 Date of Discharge: 11/18/17 Minutes to complete discharge: 37 Discharge Summary Reason For Visit: ASTHMA WITH ACUTE EXACERBATION, DRUG OVERDOSE Current Active Problems Acute asthma exacerbation (Acute) Alcohol dependence with uncomplicated withdrawal (Acute) Drug overdose (Acute) Nicotine dependence (Acute) Opioid dependence (Acute) Sedative, hypnotic or anxiolytic dependence with withdrawal, uncomplicated ( Acute) Hospital Course: Hospital Course: Briefly this 31 y/o female with a past medical history of asthma, anxiety, adhd , and polysubstance abuse. Patient reported ongoing cough with productive sputum for the past 4 days, worsening within the past 24 hours and developed pain to the center of the chest after coughing. Patient admits to taking 60mg of oxycontin that she acquired from a friend and her prescribed dose of xanax last evening. She was laying down to sleep and was awakened by EMS after being administered Narcan. She smokes marijuana and tobacco daily, in addition, she last snorted cocaine 2 days ago. Plan: Asthma exacerbation - start solumedrol 40mg qid, with taper as appropriate, symbicort, and standing duonebs - keep spo2 above 92% with supplemental O2 Etoh abuse - Libirum detox per Dr. kennedy Poly substance abuse - Continue home xanax 1mg tid, medication verified with [facility] drafter geophysical reference # [id number] adhd - Patient takes adderall 10mg bid, patient to bring in home medication Dispo: - Pt is signing out AMA risk v benefits explained including sob, acute bronchospasm, GA, acute resp failure and . Pt understands and will return to hospital if needed. Case also discussed with mother. Condition: Guarded - Instructions Referrals: Sumit Lim MD [Primary Care Provider] - Disposition: AGAINST MEDICAL ADVICE - Home Medications Comprehensive Discharge Medication List: Ambulatory Orders Alprazolam [Xanax] 0 mg PO TID 08/18/17 Dextroamphetamine/Amphetamine [Adderall 10 mg Tablet] 10 mg PO BID 08/18/17 Albuterol Sulfate Inhaler - [Ventolin Hfa Inhaler -] 2 inh PO Q6H PRN 11/16/17 Oxymorphone HCl 11/16/17 This patient is new to me today: Yes Date on this admission: 11/18/17 Emergency Visit: Yes ED Registration Date: 11/17/17 Care time: The patient presented to the Emergency Department on the above date and was hospitalized for further evaluation of their emergent condition. Critical Care patient: No - Discharge Referral Referred to [facility] Med P.C.: No
--- NOTE | 2017-11-18 14:38 | PN ---
Progress Note (short form) - Note Progress Note: PULMONARY SLEEPING PRESENTLY COUGHED ALL NIGHT SLEEPING MOST OF THE DAY VSS/AFEBRILE ANICTERIC LESS WHEEZE/RHONCHI S1S2 BS+ NO EDEMA LABS/MEDS/NOTES REVIEWED (1) Acute asthma exacerbation Code(s): J45.901 - UNSPECIFIED ASTHMA WITH (ACUTE) EXACERBATION Qualifiers: Asthma severity: moderate Asthma persistence: unspecified Qualified Code( s): J45.901 - Unspecified asthma with (acute) exacerbation (2) Drug overdose Code(s): T50.901A - POISONING BY UNSP DRUG/MEDS/BIOL SUBST, ACCIDENTAL, INIT (3) Alcohol intoxication Code(s): F10.129 - ALCOHOL ABUSE WITH INTOXICATION, UNSPECIFIED Qualifiers: Complication of substance-induced condition: uncomplicated (4) Anxiety Code(s): F41.9 - ANXIETY DISORDER, UNSPECIFIED Assessment/Plan A/E B.ASTHMA RESOLVING OVERDOSE/OPIATES/COCAINE/MARIJUANA SOLUMEDROL/KASI/LAMA/ICS DAILY PEAK FLOW/O2 SUPPLEMENTATION MULTIPLE ANTIBIOTIC ALLERGIES NOTED OBTAIN SPUTUM GRAM STAIN/CULTURE CAN USE SULFA BASED ABS IF NEEDED Nela SUE MD Problem List - Problems (1) Acute asthma exacerbation Code(s): J45.901 - UNSPECIFIED ASTHMA WITH (ACUTE) EXACERBATION Qualifiers: Asthma severity: moderate Asthma persistence: unspecified Qualified Code( s): J45.901 - Unspecified asthma with (acute) exacerbation (2) Drug overdose Code(s): T50.901A - POISONING BY UNSP DRUG/MEDS/BIOL SUBST, ACCIDENTAL, INIT (3) Alcohol intoxication Code(s): F10.129 - ALCOHOL ABUSE WITH INTOXICATION, UNSPECIFIED Qualifiers: Complication of substance-induced condition: uncomplicated (4) Anxiety Code(s): F41.9 - ANXIETY DISORDER, UNSPECIFIED
[2017-11-18] MEDS ORDERED: BENZOCAINE/MENTH/CETYLPYRD CL 1 EACH LOZENGE MM PRN (17:03)
[2017-11-18] MEDS: THIAMINE HCL 100 MG TABLET (FP) PO SCH (21:21)
[2017-11-19] MEDS ORDERED: ZOLPIDEM TARTRATE 5 MG TABLET PO ONE (00:17)
[2017-11-19] MEDS: methylPREDNISolone NA SUCC 40 MG/1 ML VIAL IVPUSH SCH ×2 (03:10→09:00)
[2017-11-19] MEDS: chlordiazePOXIDE HCL 25 MG CAPSULE PO SCH ×3 (05:30→17:12)
[2017-11-19] MEDS: ALBUTEROL SO4 2.5/IPRATROPIUM 0.5 INH SOL 3 ML VIAL.NEB. NEB SCH ×4 (08:00→20:35)
[2017-11-19] MEDS ORDERED: PT OWN MED DRAWER 7, Y5N ONE ×2 (09:08→11:05)
[2017-11-19] MEDS: PRENATAL VITAMINS W/ FOLIC ACID TABLET (FP) PO SCH (10:00)
[2017-11-19] MEDS: FAMOTIDINE 20 MG TABLET PO SCH ×2 (10:57→22:10)
[2017-11-19] MEDS: NICOTINE 21 MG/24 HOURS TOPICAL PATCH TD SCH (10:58)
[2017-11-19] MEDS: ENOXAPARIN NA (PORCINE) 40 MG/0.4 ML DISP.SYRIN SQ SCH (10:58)
--- NOTE | 2017-11-19 11:54 | PN ---
Physical Exam: SUBJECTIVE: Patient seen and examined. She is feeling better, ambulating the halls. Says she has spoken with her family about decreasing her ETOH. The pills was not her, she never asks for them before they are due and her mother keeps them. OBJECTIVE: Vital Signs Period Temp Pulse Resp BP Sys/Pratt Pulse Ox Last 24 Hr 98.4 F-98.5 F 68-93 18-20 112-125/66-81 96-97 PE Neuro: alert, awake, cn 2-12intact Pulm: mildly tachpneic at rest, mild wheeze CV: s1 s2 rrr no mrg Abd: s nt nd + bs Ext: warm no le edema Active Medications Generic Name Dose Route Start Last Admin Trade Name Freq PRN Reason Stop Dose Admin Albuterol Sulfate 2 puff 11/17/17 16:02 Ventolin Hfa Inhaler - IH Q1H PRN WHEEZING Albuterol/Ipratropium 1 amp 11/17/17 08:00 11/19/17 08:00 Duoneb - NEB 1 amp RQID [facility] Administration Benzocaine/Menthol 1 each 11/18/17 17:03 Cepacol Lozenge - MM Q4H PRN SORE THROAT Chlordiazepoxide HCl 25 mg 11/18/17 23:00 11/19/17 10:57 Librium - PO 11/19/17 17:01 25 mg [id number] [facility]ING Administration Chlordiazepoxide HCl 15 mg 11/19/17 23:00 Librium - PO 11/20/17 17:01 [id number] KING Enoxaparin Sodium 40 mg 11/17/17 11:30 11/19/17 10:58 Lovenox - SQ 40 mg DAILY [facility] Administration Famotidine 20 mg 11/17/17 10:00 11/19/17 10:57 Pepcid - PO 20 mg BID [facility] Administration Guaifenesin 10 ml 11/17/17 22:56 11/18/17 23:29 Robitussin - PO 10 ml Q4H PRN Administration COUGH Methylprednisolone Sodium Succinate 40 mg 11/17/17 09:00 11/19/17 09:00 Solu-Medrol - IVPUSH 40 mg Q6H-IV [facility] Administration Nicotine 21 mg 11/17/17 19:39 11/19/17 10:58 Nicoderm Patch - TD 21 mg DAILY [facility] Administration Nicotine Polacrilex 2 mg 11/17/17 19:39 11/18/17 13:43 Nicorette Gum - BUC 2 mg Q2H PRN Administration NICOTINE REPLACEMENT RX Multivit/Folic Acid/Iron 1 tab 11/18/17 10:00 11/18/17 09:37 Vitamins (Sjr) - PO 1 tab DAILY [facility] Administration Thiamine HCl 100 mg 11/17/17 22:00 11/18/17 21:21 Vitamin B1 - PO 100 mg HS KING Administration Assessment: 31 year old female with a past medical history of asthma, anxiety, adhd, and polysubstance abuse. Patient reports ongoing cough with productive sputum for the past 4 days Plan: 1. Asthma exacerbation - Taper solumedrol 40mg daily, send home with taper tomorrow - Symbicort, and standing duonebs - Stable on RA 2. Etoh abuse - Libirum detox per Dr. kennedy - Denies active withdrawal symptoms 3. Poly substance abuse - Continue home xanax 1mg tid, medication verified with [facility] mechanical project engineer reference # [id number] adhd - Patient takes adderall 10mg bid, patient to bring in home medication Dispo: - Home tomorrow with taper, likely will not want to stay to complete detox Visit type - Emergency Visit Emergency Visit: Yes ED Registration Date: 11/18/17 Care time: The patient presented to the Emergency Department on the above date and was hospitalized for further evaluation of their emergent condition. - New Patient This patient is new to me today: No - Critical Care Critical Care patient: No
--- NOTE | 2017-11-19 13:32 | PN ---
Progress Note (short form) - Note Progress Note: PULMONARY AWAKE /ALERT VSS/AFEBRILE ANICTERIC MINIMAL ANTERIOR EXP WHEEZE S1S2 BS+ NO EDEMA LABS/MEDS/NOTES REVIEWED (1) Acute asthma exacerbation Code(s): J45.901 - UNSPECIFIED ASTHMA WITH (ACUTE) EXACERBATION Qualifiers: Asthma severity: moderate Asthma persistence: unspecified Qualified Code( s): J45.901 - Unspecified asthma with (acute) exacerbation (2) Drug overdose Code(s): T50.1A - POISONING BY UNSP DRUG/MEDS/BIOL SUBST, ACCIDENTAL, INIT (3) Alcohol intoxication Code(s): F10.129 - ALCOHOL ABUSE WITH INTOXICATION, UNSPECIFIED Qualifiers: Complication of substance-induced condition: uncomplicated (4) Anxiety Code(s): F41.9 - ANXIETY DISORDER, UNSPECIFIED Assessment/Plan A/E B.ASTHMA RESOLVING OPIATES/COCAINE/MARIJUANA ABUSE SOLUMEDROL/KASI/LAMA/ICS DAILY PEAK FLOW/O2 SUPPLEMENTATION MULTIPLE ANTIBIOTIC ALLERGIES NOTED COUNSELED ON NICOTINE ABSTINENCE Nela SUE MD Problem List - Problems (1) Acute asthma exacerbation Code(s): J45.901 - UNSPECIFIED ASTHMA WITH (ACUTE) EXACERBATION Qualifiers: Asthma severity: moderate Asthma persistence: unspecified Qualified Code( s): J45.901 - Unspecified asthma with (acute) exacerbation (2) Drug overdose Code(s): T50.1A - POISONING BY UNSP DRUG/MEDS/BIOL SUBST, ACCIDENTAL, INIT (3) Alcohol intoxication Code(s): F10.129 - ALCOHOL ABUSE WITH INTOXICATION, UNSPECIFIED Qualifiers: Complication of substance-induced condition: uncomplicated (4) Anxiety Code(s): F41.9 - ANXIETY DISORDER, UNSPECIFIED
[2017-11-19 20:27] VITALS: PULSE 82
[2017-11-19] MEDS: chlordiazePOXIDE 5 MG CAPSULE PO SCH (22:10)
[2017-11-19] MEDS: THIAMINE HCL 100 MG TABLET (FP) PO SCH (22:10)
[2017-11-19] MEDS ORDERED: SODIUM CHLORIDE 1,000 ML IV STA (22:16)
--- NOTE | 2017-11-19 22:52 | HOSP ---
Subjective - Review of Symptoms Events since last encounter: Hospitalist Encounter Notified by RN that he found two white pills in her tissue box The RN identified the pills as Klonipin 2mg The patient stated it was her boyfriend's The patient reported to the RN that she feels bad and wants to "jump out the window" Plan: Patient placed on 1:1 Observation Psychiatry to be informed of tonight's events by instructor programmable controllers consult No visitors allowed- 2/2 bringing in contraband T now Other Systems: Psych:Tearful, Suicidal Ideation Physical Examination Vital Signs: Vital Signs Temperature 98.1 F 11/19/17 20:26 Pulse Rate 82 11/19/17 20:26 Respiratory Rate 20 11/19/17 20:26 Blood Pressure 104/51 11/19/17 20:26 O2 Sat by Pulse Oximetry (%) 95 11/19/17 20:46 Constitutional: Yes: Anxious, Moderate Distress Eyes: Yes: Conjunctiva Clear, PERRL HENT: Yes: WNL, Atraumatic, Normocephalic Neck: Yes: WNL, Supple, Trachea Midline Cardiovascular: Yes: Regular Rate and Rhythm, S1, S2 Respiratory: Yes: Rhonchi Gastrointestinal: Yes: WNL, Normal Bowel Sounds Peripheral Pulses WNL: Yes Neurological: Yes: Alert, Cran Nerves II-XII Intact ...Motor Strength: WNL Psychiatric: Yes: Alert, Suicidal Ideation Labs: CBC, BMP 11/16/17 20:45 11/17/17 07:30 Laboratory Results - last 24 hr 11/19/17 11/19/17 16:20 19:49 Lactic Acid 5.1 H* 5.1 H* Intake & Output 11/16/17 11/17/17 11/18/17 11/19/17 23:59 23:59 23:59 23:59 Intake Total 2850 1650 350 Balance 2850 1650 350 Weight 52.1 kg 59.357 kg Vital Signs - 24 hr 11/19/17 11/19/17 11/19/17 03:00 06:00 10:00 Temperature 98.3 F Pulse Rate 68 70 Respiratory 20 20 20 Rate Blood Pressure 114/71 118/76 O2 Sat by Pulse 96 96 Oximetry (%) 11/19/17 11/19/17 11/19/17 14:00 20:26 20:46 Temperature 97.7 F 98.1 F Pulse Rate 88 82 Respiratory 16 20 Rate Blood Pressure 120/80 104/51 O2 Sat by Pulse 96 95 Oximetry (%) Current Medications Generic Name Dose Route Start Last Admin Trade Name Freq PRN Reason Stop Dose Admin Albuterol Sulfate 2 puff 11/17/17 16:02 Ventolin Hfa Inhaler - IH Q1H PRN WHEEZING Albuterol/Ipratropium 1 amp 11/17/17 08:00 11/19/17 20:35 Duoneb - NEB Not Given RQID [facility]ING Benzocaine/Menthol 1 each 11/18/17 17:03 Cepacol Lozenge - MM Q4H PRN SORE THROAT Chlordiazepoxide HCl 15 mg 11/19/17 23:00 11/19/17 22:10 Librium - PO 11/20/17 17:01 15 mg [id number] KING Administration Enoxaparin Sodium 40 mg 11/17/17 11:30 11/19/17 10:58 Lovenox - SQ 40 mg DAILY [facility] Administration Famotidine 20 mg 11/17/17 10:00 11/19/17 22:10 Pepcid - PO 20 mg BID [facility] Administration Guaifenesin 10 ml 11/17/17 22:56 11/18/17 23:29 Robitussin - PO 10 ml Q4H PRN Administration COUGH Sodium Chloride 1,000 mls @ 100 mls/hr 11/19/17 23:15 Normal Saline - IV ASDIR KING Melatonin 5 mg 11/19/17 23:24 Melatonin PO HS PRN INSOMNIA Methylprednisolone Sodium Succinate 40 mg 11/20/17 10:00 Solu-Medrol - IVPUSH DAILY [facility] Nicotine 21 mg 11/17/17 19:39 11/19/17 10:58 Nicoderm Patch - TD 21 mg DAILY [facility] Administration Nicotine Polacrilex 2 mg 11/17/17 19:39 11/18/17 13:43 Nicorette Gum - BUC 2 mg Q2H PRN Administration NICOTINE REPLACEMENT RX Multivit/Folic Acid/Iron 1 tab 11/18/17 10:00 11/19/17 10:00 Vitamins (Sjr) - PO 1 tab DAILY [facility] Administration Thiamine HCl 100 mg 11/17/17 22:00 11/19/17 22:10 Vitamin B1 - PO 100 mg HS KING Administration
[2017-11-19] MEDS ORDERED: SODIUM CHLORIDE 1,000 ML IV SCH (23:15)
[2017-11-19] MEDS ORDERED: MELATONIN 5 MG TABLETS PO PRN (23:24)
[2017-11-20 00:05] VITALS: BP 120/83; TEMP 98.4
[2017-11-20] MEDS: guaiFENesin 200 MG/10 ML 10 ML UNIT-DOSE CUPS PO PRN ×2 (01:05→05:23)
[2017-11-20] MEDS: chlordiazePOXIDE 5 MG CAPSULE PO SCH (05:23)
[2017-11-20 08:17] LABS: BASO % 0.3 % (0-2.0); EOS % 0.3 % (0-4.5); HEMATOCRIT 37.7 % (32.4-45.2); HEMOGLOBIN 12.7 GM/dl (10.7-15.3); LYMPH % 24.6 % (8-40); MCH 34.5 pg (25.7-33.7); MCHC 33.6 g/dl (32.0-36.0); MEAN CELL VOLUME 102.4 fl (80-96); MEAN PLT VOLUME 6.9 fl (7.5-11.1); NEUT % 68.8 % (42.8-82.8); PLATELET COUNT 248 K/MM3 (134-434); RBC 3.68 M/mm3 (3.60-5.2); RDW 13.7 % (11.6-15.6); WHITE BLOOD COUNT 7.7 K/mm3 (4.0-10.8)
[2017-11-20 08:21] LABS: ANION GAP 4 (8-16); BLOOD UREA NITROGEN 9 mg/dl (7-18); CALCIUM 7.6 mg/dl (8.4-10.2); CHLORIDE 109 mmol/L (98-107); CO2 24 mmol/L (22-28); CREATININE 0.7 mg/dl (0.6-1.3); GLUCOSE,RANDOM 85 mg/dl (74-106); POTASSIUM 3.3 mmol/L (3.5-5.1); SODIUM 137 mmol/L (136-145)
[2017-11-20] MEDS: ALBUTEROL SO4 2.5/IPRATROPIUM 0.5 INH SOL 3 ML VIAL.NEB. NEB SCH (08:55)
[2017-11-20] MEDS ORDERED: PT OWN MED DRAWER 7, Y5N ONE (09:06)
[2017-11-20] MEDS ORDERED: POTASSIUM CHLORIDE TABS 20 MEQ TABLET.ER (FP) PO ONE (09:15)
[2017-11-20] MEDS ORDERED: methylPREDNISolone NA SUCC 40 MG/1 ML VIAL IVPUSH SCH (10:00)
--- NOTE | 2017-11-20 10:19 | PN ---
Progress Note (short form) - Note Progress Note: Patient seen for psych follow up. Apparantly, she said she wanted to jump out of the window because she wanted to smoke. MS: alert, oriented, I don.t want to , I never wanted to kill my self. I am ok. plan> d/c 1:1 Patient is not suicidal, can be discharged when medically stable.
--- NOTE | 2017-11-20 10:56 | PN ---
Physical Exam: SUBJECTIVE: Patient seen and examined, sitting up in bed, reports feeling well , wants to go home. OBJECTIVE:31 year old female with a past medical history of asthma, anxiety, adhd, and polysubstance abuse. patient was admitted from the emergency department for emergent condition. Vital Signs Period Temp Pulse Resp BP Sys/Pratt Pulse Ox Last 24 Hr 97.7 F-98.4 F 82-88 16-20 104-120/51-83 95-96 GENERAL: The patient is awake, alert, and fully oriented, in no acute distress. HEAD: Normal with no signs of trauma. EYES: PERRL, extraocular movements intact, sclera anicteric, conjunctiva clear. No ptosis. ENT: Ears normal, nares patent, oropharynx clear without exudates, moist mucous membranes. NECK: Trachea midline, full range of motion, supple. LUNGS: Breath sounds equal, clear to auscultation bilaterally, no wheezes, no crackles, no accessory muscle use. HEART: Regular rate and rhythm, S1, S2 without murmur, rub or gallop. ABDOMEN: Soft, nontender, nondistended, normoactive bowel sounds, no guarding, no rebound, no hepatosplenomegaly, no masses. EXTREMITIES: 2+ pulses, warm, well-perfused, no edema. NEUROLOGICAL: Cranial nerves II through XII grossly intact. Normal speech, gait not observed. PSYCH: Normal mood, normal affect. SKIN: Warm, dry, normal turgor, no rashes or lesions noted Laboratory Results - last 24 hr 11/19/17 11/19/17 11/20/17 16:20 19:49 02:00 WBC RBC Hgb Hct MCV MCH MCHC RDW Plt Count MPV Neutrophils % Lymphocytes % Monocytes % Eosinophils % Basophils % Sodium Potassium Chloride Carbon Dioxide Anion Gap BUN Creatinine Random Glucose Lactic Acid 5.1 H* 5.1 H* 2.7 H* Calcium Magnesium 11/20/17 11/20/17 11/20/17 07:15 07:15 07:15 WBC 7.7 RBC 3.68 Hgb 12.7 Hct 37.7 MCV 102.4 H MCH 34.5 H MCHC 33.6 RDW 13.7 Plt Count 248 MPV 6.9 L Neutrophils % 68.8 Lymphocytes % 24.6 Monocytes % 6.0 Eosinophils % 0.3 Basophils % 0.3 Sodium 137 Potassium 3.3 L Chloride 109 H D Carbon Dioxide 24 Anion Gap 4 L BUN 9 D Creatinine 0.7 Random Glucose 85 D Lactic Acid 1.4 Calcium 7.6 L Magnesium 11/20/17 07:15 WBC RBC Hgb Hct MCV MCH MCHC RDW Plt Count MPV Neutrophils % Lymphocytes % Monocytes % Eosinophils % Basophils % Sodium Potassium Chloride Carbon Dioxide Anion Gap BUN Creatinine Random Glucose Lactic Acid Calcium Magnesium 1.8 Active Medications Generic Name Dose Route Start Last Admin Trade Name Freq PRN Reason Stop Dose Admin Albuterol Sulfate 2 puff 11/17/17 16:02 Ventolin Hfa Inhaler - IH Q1H PRN WHEEZING Albuterol/Ipratropium 1 amp 11/17/17 08:00 11/20/17 08:55 Duoneb - NEB 1 amp RQID KING Administration Benzocaine/Menthol 1 each 11/18/17 17:03 Cepacol Lozenge - MM Q4H PRN SORE THROAT Chlordiazepoxide HCl 15 mg 11/19/17 23:00 11/20/17 05:23 Librium - PO 11/20/17 17:01 15 mg [id number] KING Administration Enoxaparin Sodium 40 mg 11/17/17 11:30 11/19/17 10:58 Lovenox - SQ 40 mg DAILY [facility]ING Administration Famotidine 20 mg 11/17/17 10:00 11/19/17 22:10 Pepcid - PO 20 mg BID KING Administration Guaifenesin 10 ml 11/17/17 22:56 11/20/17 05:23 Robitussin - PO 10 ml Q4H PRN Administration COUGH Sodium Chloride 1,000 mls @ 100 mls/hr 11/19/17 23:15 11/20/17 00:59 Normal Saline - IV 100 mls/hr ASDIR KING Administration Melatonin 5 mg 11/19/17 23:24 11/20/17 01:01 Melatonin PO 5 mg HS PRN Administration INSOMNIA Methylprednisolone Sodium Succinate 40 mg 11/20/17 10:00 Solu-Medrol - IVPUSH DAILY KING Nicotine 21 mg 11/17/17 19:39 11/19/17 10:58 Nicoderm Patch - TD 21 mg DAILY [facility]ING Administration Nicotine Polacrilex 2 mg 11/17/17 19:39 04/21/18 13:43 Nicorette Gum - BUC 2 mg Q2H PRN Administration NICOTINE REPLACEMENT RX Multivit/Folic Acid/Iron 1 tab 11/18/17 10:00 11/19/17 10:00 Vitamins (Sjr) - PO 1 tab DAILY KING Administration Thiamine HCl 100 mg 11/17/17 22:00 11/19/17 22:10 Vitamin B1 - PO 100 mg HS KING Administration ASSESSMENT/PLAN: 1. Asthma exacerbation - solumedrol 40mg daily, transitioned to po prednisione - Symbicort, and standing duonebs - Stable on RA 2. Etoh abuse - Libirum detox per Dr. kennedy - patient reports she is not interested in alcholol or drug detox at this time. - Denies active withdrawal symptoms 3. Poly substance abuse - Continue home xanax 1mg tid, medication verified with [facility] elevator operator reference # [id number] adhd - Patient takes adderall 10mg bid, patient to bring in home medication Dispo: - patient is requesting discharge home, report she is not interested in detox of chemical dependency
== END 2017-11-20 11:30 | disposition home or self-care (01) | DRG 812 ==
LOC: FER 20:00 → FM/S 11-17 03:50 → OBSVTOIN 11-18 16:03
PROVIDERS: ADMIT Internal Medicine; ATTEND Nurse Practitioner Family
DX: T40.2X1A Poisoning by other opioids, accidental (unintentional), initial encounter (principal); F41.9 Anxiety disorder, unspecified; F90.1 Attention-deficit hyperactivity disorder, predominantly hyperactive type; F17.210 Nicotine dependence, cigarettes, uncomplicated; F14.10 Cocaine abuse, uncomplicated; F12.10 Cannabis abuse, uncomplicated; Z88.0 Allergy status to penicillin; F32.9 Major depressive disorder, single episode, unspecified; J45.901 Unspecified asthma with (acute) exacerbation; Y92.89 Other specified places as the place of occurrence of the external cause; F10.230 Alcohol dependence with withdrawal, uncomplicated; F11.20 Opioid dependence, uncomplicated; F13.20 Sedative, hypnotic or anxiolytic dependence, uncomplicated
CPT/HCPCS: 36415; 36600; 70450-TC; 71045-TC-FY; 80048; 80053; 80307; 81003; 82550; 82803; 83605; 83735; 84484; 84703; 85025; 85379; 87040; 93005; 94010; 94150; 94640; 99285-25; G0378; J7030

== ENCOUNTER 2019-02-04 19:25 | Emergency (ER) | payer OTHER ==
[2019-02-04 19:37] VITALS: BP 120/96; PULSE 100; TEMP 98.5; BMI 21.3
--- NOTE | 2019-02-04 20:16 | PDOC ---
History of Present Illness - General Chief Complaint: Pain, Acute Stated Complaint: INJURY TO RIGHT ANKLE ON 01/21 Time Seen by Provider: 02/04/19 19:35 - History of Present Illness Initial Comments: 02/04/19 20:17 33y/o F hx of generalized anxiety disorder & adhd presenting to the Ed with 2wks of right ankle pain after rolling her ankle on 01/21. At the time of injury ankle was wrapped and iced. No x-rays were taken at the time. Since then she has fallen on the ankle once and she attempted some gymnastics today which have exacerbated her pain. She reports using ibuprofen which have provided no relief. She denies any fevers, chills, sweats, pain radiating to other sites or worsening ambulatory ability Past History - Past Medical History Allergies/Adverse Reactions: Allergies Allergy/AdvReac Type Severity Reaction Status Date / Time morphine Allergy Mild Hives Verified 02/04/19 19:27 amoxicillin Allergy Verified 02/04/19 19:27 azithromycin [From Zithromax] Allergy Verified 02/04/19 19:27 cefaclor [From Ceclor] Allergy Verified 02/04/19 19:27 Cephalosporins Allergy Verified 02/04/19 19:27 clarithromycin [From Biaxin] Allergy Verified 02/04/19 19:27 haloperidol [From Haldol] Allergy Verified 02/04/19 19:27 haloperidol lactate Allergy Verified 02/04/19 19:27 [From Haldol] moxifloxacin [From Avelox] Allergy Verified 02/04/19 19:27 moxifloxacin HCl Allergy Verified 02/04/19 19:27 [From Avelox] Penicillins Allergy Verified 08/18/17 17:39 Sulfa (Sulfonamide Allergy Verified 10/01/17 10:25 Antibiotics) Home Medications: Ambulatory Orders Dextroamphetamine/Amphetamine [Adderall 10 mg Tablet] 10 mg PO BID 08/18/17 Alprazolam 1 mg PO TID 10/01/17 COPD: No Psychiatric Problems: Yes (ANIXETY) Seizures: Yes - Reproductive History Therapeutic (s) & number: No - Immunization History Immunization Up to Date: Yes - Suicide/Smoking/Psychosocial Hx Smoking History: Current every day smoker Have you smoked in the past 12 months: Yes Number of Cigarettes Smoked Daily: 10 Information on smoking cessation initiated: Yes 'Breaking Loose' booklet given: 10/01/17 Hx Alcohol Use: Yes (OCCAS.) Drug/Substance Use Hx: Yes (MARIJUANA) Substance Use Type: Alcohol, Cocaine, Marijuana, Heroin Hx Substance Use Treatment: Yes (mat with suboxone and methadone in past) Review of Systems - Review of Systems All Other Systems: Reviewed and Negative *Physical Exam - Vital Signs Last Vital Signs Temp Pulse Resp BP Pulse Ox 98.5 F 100 H 16 120/96 100 02/04/19 19:29 02/04/19 19:29 02/04/19 19:29 02/04/19 19:29 02/04/19 19:29 - Physical Exam General Appearance: Yes: Appropriately Dressed. No: Apparent Distress HEENT: positive: Normal Voice, Symmetrical. negative: Scleral Icterus (R), Scleral Icterus (L) Respiratory/Chest: positive: Lungs Clear, Normal Breath Sounds. negative: Respiratory Distress, Accessory Muscle Use, Labored Respiration Cardiovascular: positive: Regular Rhythm, Regular Rate, S1, S2. negative: Edema , JVD, Murmur Extremity: positive: Normal Capillary Refill, Other (Right ankle swollen compared to left. Tender to palpation. 2+ pedal pulses bilaterally. Can bear weight on the ankle and able to walk.Restricted abduction and adduction.) Integumentary: positive: Normal Color, Dry, Warm, Bruising. negative: Cyanotic , Moist Medical Decision Making - Medical Decision Making 02/04/19 21:19 quant hcg negative. ankle-x-ray done no fractures detected ankle wrapped with ari wrap and discharged 02/07/19 19:27 02/07/19 19:29 *DC/Admit/Observation/Transfer Diagnosis at time of Disposition: Ankle pain, right Diagnosis at time of Disposition: (Ruled Out): Ankle sprain - Discharge Dispostion Disposition: HOME Condition at time of disposition: Stable Decision to Admit order: No - Referrals Referrals: Sumit Lim MD [Primary Care Provider] - - Patient Instructions Printed Discharge Instructions: DI for Ankle Sprain Additional Instructions: Return to the ED if pain worsens and is not relieved by over the counter tylenol or motrin. You develop fevers or chills, or if swelling spreads, you develop numbness tingling or the foot becomes cold. - Post Discharge Activity
--- NOTE | 2019-02-04 20:46 | PDOC ---
Documentation entered by Venkat Samson SCRIBE, acting as scribe for Kathryn Cardona MD. Kathryn Cardona MD: This documentation has been prepared by the Chapin luna Aiswarya, SCRIBE, under my direction and personally reviewed by me in its entirety. I confirm that the documentation accurately reflects all work, treatment, procedures, and medical decision making performed by me. Attending Attestation - Resident Resident Name: SeraViolaChioAndrzej - ED Attending Attestation I have performed the following: I have examined & evaluated the patient, The case was reviewed & discussed with the resident, I agree w/resident's findings & plan, Exceptions are as noted - HPI HPI: 02/04/19 20:36 The patient is a 33 year old female, with a significant PMH of substance abuse , ADHD, anxiety, seizures, asthma who presents to the emergency department with right ankle pain that began a few weeks ago. The patient states on January 21 she was walking when she rolled on her right ankle. The patient states after the episode she fell and landed on the ankle again 2x, most recent fall was yesterday while she was doing gymnastics. The patient states pain has progressively worsened today but able to bear weight on it. The patient denies any numbness or tingling. Denies any head trauma or any other injuries. Denies any bleeding or ecchymosis. . PAST MEDICAL HISTORY: substance abuse, ADHD, anxiety, seizures, asthma PAST SURGICAL HISTORY: no significant history FAMILY HISTORY: no pertinent history SOCIAL HISTORY: Pt lives with family and is employed. MEDICATIONS: reviewed ALLERGIES: As per nursing notes Adult ROS General: No fevers or chills, no weakness, no weight loss HEENT: No change in vision. No sore throat,. No ear pain CardioVascular: No chest pain or shortness of breath Respiratory:No cough, or wheezing. Gastrointestinal: no nausea, vomiting, diarrhea or constipation, No rectal bleeding Genitourinary: No dysuria, hematuria, or frequency Musculoskeletal: +right ankle pain Neurologic: No headache, vertigo, dizziness or loss of consciousness Psychiatric: nor depression Skin: No rashes or easy bruising Endocrine: no increased thirst or abnormal weight change Allergic: no skin or latex allergy All other systems reviewed and normal - Physicial Exam PE: 02/04/19 20:36 Basic PE GENERAL: The patient is awake, alert, and fully oriented, in no acute distress. HEAD: Normal with no signs of trauma. EYES: Pupils equal, round and reactive to light, extraocular movements intact, sclera anicteric, conjunctiva clear. EXTREMITIES: +mild tenderness on palpation to the lateral malleolus. No ecchymosis or tenderness on the 5th metatarsal. Decreased ROM secondary to discomfort. Neurovascular intact. NEUROLOGICAL: Normal speech, normal gait. PSYCH: Normal mood, normal affect. SKIN: Warm, Dry, normal turgor, no rashes or lesions noted. - Medical Decision Making 02/04/19 20:45 Assessment and plan: This is a 33-year-old female who injured her right ankle approximately 2 weeks ago and now comes in complaining of continuing discomfort and swelling. Patient however was intoxicated last night and attempted to do a back flip with a round and felt immediate increase in the discomfort. Patient said she has not seen anybody or had any studies done for the ankle. Otherwise patient said she has been wrapping the ankle. Patient had x-ray done that was negative for any acute fracture or pathology Patient given orthopedic referral follow-up and discharged home.
== END 2019-02-04 21:31 | disposition home or self-care (01) ==
LOC: FER 19:25
DX: M25.572 Pain in left ankle and joints of left foot (principal); X58.XXXA Exposure to other specified factors, initial encounter; Y93.43 Activity, gymnastics; Y92.89 Other specified places as the place of occurrence of the external cause; F41.9 Anxiety disorder, unspecified; R56.9 Unspecified convulsions; F17.210 Nicotine dependence, cigarettes, uncomplicated; F90.9 Attention-deficit hyperactivity disorder, unspecified type
CPT/HCPCS: 73610-TC-RT-FY; 84703; 99281-25

== ENCOUNTER 2020-02-20 15:10 | Emergency (ER) | payer OTHER ==
[2020-02-20 15:24] VITALS: BP 125/90; PULSE 69; TEMP 98.4; BMI 21.7
[2020-02-20] MEDS ORDERED: SODIUM CHLORIDE 1,000 ML IV STA (15:45)
--- NOTE | 2020-02-20 15:52 | PDOC ---
History of Present Illness - General Chief Complaint: Sore Throat Stated Complaint: FEVER, COUGH, SORE THROAT, R/O COVID-19 Time Seen by Provider: 02/20/20 15:29 - History of Present Illness Initial Comments: 02/20/20 15:50 34yo F w/PM H substance abuse sent by PCP for fever, dry cough, r/o COVID. Patient complains of 2 days of fever (max 102, last 101 this morning, went down with tylenol), chills, sore throat, dry cough, myalgias, non-bloody vomiting x2, dysuria, decreased urinary frequency, expiratory wheezing last night. Complains of chest tightness, not worse with exertion or relieved by rest. Denies sick contacts or recent travel. Works in a restaurant. PMHX/PSH: as in HPI Meds: Home Medication List Medication Instructions Recorded Confirmed Type Dextroamphetamine/Amphetamine 10 mg PO BID 08/18/17 02/20/20 History [Adderall 10 mg Tablet] Alprazolam 1 mg PO TID 10/01/17 02/20/20 History Zolpidem Tartrate [Ambien] 10 mg PO HS PRN 02/20/20 02/20/20 History Allergies: Allergies Allergy/AdvReac Type Severity Reaction Status Date / Time morphine Allergy Mild Hives Verified 02/04/19 19:27 amoxicillin Allergy Verified 02/04/19 19:27 azithromycin [From Zithromax] Allergy Verified 02/04/19 19:27 cefaclor [From Ceclor] Allergy Verified 02/04/19 19:27 Cephalosporins Allergy Verified 02/04/19 19:27 clarithromycin [From Biaxin] Allergy Verified 02/04/19 19:27 haloperidol [From Haldol] Allergy Verified 02/04/19 19:27 haloperidol lactate Allergy Verified 02/04/19 19:27 [From Haldol] moxifloxacin [From Avelox] Allergy Verified 02/04/19 19:27 moxifloxacin HCl Allergy Verified 02/04/19 19:27 [From Avelox] Penicillins Allergy Verified 08/18/17 17:39 Sulfa (Sulfonamide Allergy Verified 10/01/17 10:25 Antibiotics) Tob: former smoker Etoh: 3 per day Rec drugs: cannabis PCP: Carina REYES GENERAL/CONSTITUTIONAL: fever or chills. HEAD, EYES, EARS, NOSE AND THROAT: No change in vision. No ear pain or discharge. sore throat. CARDIOVASCULAR:+chest tightness. No shortness of breath RESPIRATORY: No cough, wheezing, or hemoptysis. GASTROINTESTINAL: +nausea/vomiting. No diarrhea or constipation. GENITOURINARY: +dysuria, decreased frequency MUSCULOSKELETAL:+myalgias, no arthralgias SKIN: itchy rash on legs NEUROLOGIC: No headache, vertigo, loss of consciousness, or change in strength/sensation. ENDOCRINE: No increased thirst. No abnormal weight change HEMATOLOGIC/LYMPHATIC: No anemia, easy bleeding, or history of blood clots. ALLERGIC/IMMUNOLOGIC: No hives or skin allergy. PE GENERAL: Awake, alert, and fully oriented, in no acute distress HEAD: No signs of trauma, normocephalic, atraumatic EYES: PERRLA, EOMI, sclera anicteric, conjunctiva clear ENT: hearing grossly normal, nares patent, oropharynx erythematous without exudates. Moist mucosa NECK: Normal ROM, supple, tender to palpation in L anterior lymph node region, but no lymph node palpated LUNGS: No distress, speaks full sentences, clear to auscultation bilaterally HEART: Regular rate and rhythm, normal S1 and S2, no murmurs, rubs or gallops, peripheral pulses normal and equal bilaterally. ABDOMEN: Soft, nontender, normoactive bowel sounds. No guarding, no rebound. No masses EXTREMITIES : Normal inspection, Normal range of motion, no edema. No clubbing or cyanosis. NEUROLOGICAL: Cranial nerves II through XII grossly intact. Normal speech, normal gait, no focal sensorimotor deficits SKIN: Warm, Dry, normal turgor, vesicular rash on thighs Assessment and Plan 34yo F w/PM H substance abuse sent by PCP for fever, dry cough, r/o COVID. Differential includes COVID, strep, UTI, viral syndrome. -CBC, CMP: unremarkable -UA: UTI -Covid swab: pending -Step swab: neg -CXR (portable): normal chest without consolidation (my read) -1000ml NS UA showed UTI and will treat with Macrobid 100mg BID x5days. DC home 02/20/20 17:10 02/21/20 10:54 Past History - Medical History Allergies/Adverse Reactions: Allergies Allergy/AdvReac Type Severity Reaction Status Date / Time morphine Allergy Mild Hives Verified 02/04/19 19:27 amoxicillin Allergy Verified 02/04/19 19:27 azithromycin [From Zithromax] Allergy Verified 02/04/19 19:27 cefaclor [From Ceclor] Allergy Verified 02/04/19 19:27 Cephalosporins Allergy Verified 02/04/19 19:27 clarithromycin [From Biaxin] Allergy Verified 02/04/19 19:27 haloperidol [From Haldol] Allergy Verified 02/04/19 19:27 haloperidol lactate Allergy Verified 02/04/19 19:27 [From Haldol] moxifloxacin [From Avelox] Allergy Verified 02/04/19 19:27 moxifloxacin HCl Allergy Verified 02/04/19 19:27 [From Avelox] Penicillins Allergy Verified 08/18/17 17:39 Sulfa (Sulfonamide Allergy Verified 10/01/17 10:25 Antibiotics) Home Medications: Ambulatory Orders Dextroamphetamine/Amphetamine [Adderall 10 mg Tablet] 10 mg PO BID 08/18/17 Alprazolam 1 mg PO TID 10/01/17 Nitrofurantoin Monohyd/M-Cryst [Macrobid -] 100 mg PO BID 5 Days #10 capsule 0 02/20/20 Zolpidem Tartrate [Ambien] 10 mg PO HS PRN 02/20/20 COPD: No Psychiatric Problems: Yes (ANIXETY) Seizures: Yes - Reproductive History Therapeutic (s) & number: No - Immunization History Immunization Up to Date: Yes - Psycho-Social/Smoking History Smoking History: Former smoker Have you smoked in the past 12 months: Yes Number of Cigarettes Smoked Daily: 10 If you are a former smoker, when did you quit?: 3 MONTHS AGO Information on smoking cessation initiated: Yes 'Breaking Loose' booklet given: 10/01/17 - Substance Abuse Hx (Audit-C & DAST Scrn) How often the patient has a drink containing alcohol: 4 0r more times/wk Number of drinks the patient has on a typical day: 3 or 4 How often the patient has six or more drinks on one occasion: Never Score: In Men: 4 or > Positive; In Women: 3 or > Positive: 5 Screen Result (Pos requires Nsg. Audit-10AR): Positive In the last yr the pt used illegal drug/Rx for NonMed reason: Yes Score: Yes response is considered Positive: 1 Screen Result (Positive result requires Nsg. DAST-10): Positive *Physical Exam - Vital Signs Last Vital Signs Temp Pulse Resp BP Pulse Ox 98.4 F 69 16 125/90 100 02/20/20 15:20 02/20/20 15:20 02/20/20 15:20 02/20/20 15:20 02/20/20 15:20 ED Treatment Course - LABORATORY CBC & Chemistry Diagram: 02/20/20 16:55 02/20/20 15:57 - RADIOLOGY Radiology Studies Ordered: Category Date Time Status CHEST X-RAY PORTABLE* [RAD] Stat Radiology 02/20/20 15:45 Ordered Discharge - Discharge Information Problems reviewed: Yes Clinical Impression/Diagnosis: Suspected COVID-19 virus infection UTI (urinary tract infection) Qualifiers: Urinary tract infection type: acute cystitis Hematuria presence: without hematuria Qualified Code(s): N30.00 - Acute cystitis without hematuria Condition: Good Disposition: HOME - Admission No - Additional Discharge Information Prescriptions: Nitrofurantoin Monohyd/M-Cryst [Macrobid -] 100 mg PO BID 5 Days #10 capsule - Follow up/Referral Referrals: Sumit Lim MD [Primary Care Provider] - - Patient Discharge Instructions Patient Printed Discharge Instructions: DI for Urinary Tract Infection (UTI), [facility]-Coronavirus Instructions, [facility] COVID-19 Isolation Protocol Additional Instructions: You were seen in the ER for fever, cough, sore throat, and urinary symptoms. Your urine was positive for a urinary tract infection. Your Covid-19 result will come back in a few days. Your chest x-ray was normal and did not show pneumonia. Your rapid strep test was negative. Your bloodwork was negative for systemic infection. Please see your PCP within one week to follow up. Please call your doctor or return to the ED if you have persistent or worsening fever, shortness of breath, urinary symptoms, blood in your urine, back pain, or any other reason. - Post Discharge Activity Work/Back to School Note: Back to Work
[2020-02-20 16:38] LABS: THROAT:GRP A STREP ANTIGEN Negative (Negative)
--- NOTE | 2020-02-20 16:42 | PDOC ---
Attending Attestation - Resident Resident Name: Redd Finn - ED Attending Attestation I have performed the following: I have examined & evaluated the patient, The case was reviewed & discussed with the resident, I agree w/resident's findings & plan - HPI HPI: 02/20/20 16:40 34yo F w/PM H substance abuse, anxiety, ADHD sent by PCP for fever, dry cough, r/o COVID. Patient complains of 2 days of fever (max 102, last 101 this morning, went down with tylenol), chills, sore throat, dry cough, myalgias, non-bloody vomiting x2, dysuria, decreased urinary frequency, expiratory wheezing last night. Complains of chest tightness, not worse with exertion or relieved by rest. Denies sick contacts or recent travel. Works in a restaurant. - Physicial Exam PE: 02/20/20 16:40 Agree with the resident's HPI and PE as documented in the electronic medical record. NAD, well appearing, EOMI, PERRL, nl conjunctiva, anicteric; airway patent, normal phonation, +pharyngeal erythema, no tonsillar hypertrophy or exudates. neck supple. lungs clear, RRR, abdomen soft nontender. no rebound, guarding. Back nontender. MULLER x4, no focal neuro deficits. No peripheral edema. normal color for ethnicity, WWP. - Medical Decision Making 02/20/20 16:41 Vital Signs Temp Pulse Resp BP Pulse Ox 98.4 F 69 16 125/90 100 02/20/20 15:20 02/20/20 15:20 02/20/20 15:20 02/20/20 15:20 02/20/20 15:20 vitals wnl, no fever nontoxic airway intact lungs clear ddx. viral syndrome, pleurisy, covid 19 infection, pleural effusion, pneumonia, strep throat, viral pharyngitis doubt deep space infection cxr no acute chest pathology, no pna, normal cardiac silhouette, no edema or infiltrate, trachea is midline labs and lytes wnl given hydration UA with UTI, will treat with abx, f/u urine culture treating with macrobid for uncomplicated uti. covid 19 swab pending self quarantine, monitor sx until test results return hand washing, supportive care measurements, hygiene, mask wearing, social distancing and return precautions provided pt verbalized understanding of impression and plan. agreeable. strict return precautions provided, reassurance given. 02/20/20 16:42 02/20/20 17:59 Discharge - Discharge Information Problems reviewed: Yes Clinical Impression/Diagnosis: Suspected COVID-19 virus infection UTI (urinary tract infection) Qualifiers: Urinary tract infection type: acute cystitis Hematuria presence: without hematuria Qualified Code(s): N30.00 - Acute cystitis without hematuria Condition: Good Disposition: HOME - Admission No - Additional Discharge Information Prescriptions: Nitrofurantoin Monohyd/M-Cryst [Macrobid -] 100 mg PO BID 5 Days #10 capsule - Follow up/Referral Referrals: Sumit Lim MD [Primary Care Provider] - - Patient Discharge Instructions Patient Printed Discharge Instructions: DI for Urinary Tract Infection (UTI), [facility]-Coronavirus Instructions, [facility] COVID-19 Isolation Protocol Additional Instructions: You were seen in the ER for fever, cough, sore throat, and urinary symptoms. Your urine was positive for a urinary tract infection. Your Covid-19 result will come back in a few days. Your chest x-ray was normal and did not show pneumonia. Your rapid strep test was negative. Your bloodwork was negative for systemic infection. Please see your PCP within one week to follow up. Please call your doctor or return to the ED if you have persistent or worsening fever, shortness of breath, urinary symptoms, blood in your urine, back pain, or any other reason. - Post Discharge Activity Work/Back to School Note: Back to Work
[2020-02-20 17:11] LABS: EPITHELIAL CELLS FEW /hpf
[2020-02-20 17:18] LABS: BASO % 0.2 % (0-2.0); EOS % 0.4 % (0-4.5); HEMATOCRIT 41.8 % (32.4-45.2); HEMOGLOBIN 14.7 GM/dl (10.7-15.3); LYMPH % 10.1 % (8-40); MCH 35.9 pg (25.7-33.7); MCHC 35.2 g/dl (32.0-36.0); MEAN PLT VOLUME 7.1 fl (7.5-11.1); MONO % 4.8 % (3.8-10.2); NEUT % 84.5 % (42.8-82.8); PLATELET COUNT 234 K/MM3 (134-434); RDW 12.4 % (11.6-15.6); WHITE BLOOD COUNT 8.5 K/mm3 (4.0-10.8)
[2020-02-20 17:22] LABS: ALBUMIN 3.8 g/dl (3.4-5.0); BILIRUBIN,TOTAL 0.5 mg/dl (0.2-1); CALCIUM 8.6 mg/dl (8.5-10); CREATININE 0.7 mg/dl (0.55-1.3); POTASSIUM 3.8 mmol/L (3.5-5.1); TOT PROT 6.7 g/dl (6.4-8.2)
== END 2020-02-20 18:11 | disposition home or self-care (01) ==
LOC: FER 15:10
PROC: 3E0337Z Introduction of Electrolytic and Water Balance Substance into Peripheral Vein, Percutaneous Approach (ICD-10-PCS; principal; 2020-02-20)
DX: Z20.828 Contact with and (suspected) exposure to other viral communicable diseases (principal); N30.00 Acute cystitis without hematuria
CPT/HCPCS: 36415; 71045-TC-FY; 80053; 81003; 81015; 85025; 87086; 87186; 87880; 99284-25; U0003

== ENCOUNTER 2020-08-17 14:12 | Emergency (ER) | payer OTHER ==
[2020-08-17 14:34] VITALS: BMI 22.4
[2020-08-17 14:43] VITALS: BP 128/90; PULSE 77; TEMP 99.6
== END 2020-08-17 15:17 | disposition home or self-care (01) ==
LOC: FER 14:12
DX: Z48.02 Encounter for removal of sutures (principal)
CPT/HCPCS: 99281-25

== ENCOUNTER 2020-09-24 14:30 | Emergency (ER) | payer OTHER | END 2020-09-24 14:41 | disposition home or self-care (01) | LOC: JVIRT 14:30 | DX: Z20.822 Contact with and (suspected) exposure to COVID-19 (principal) | CPT/HCPCS: C9803; G2251-GT; Q3014-GT; U0003 ==

== ENCOUNTER 2021-03-15 19:21 | Emergency (ER) | payer OTHER | END 2021-03-15 20:03 | disposition home or self-care (01) | LOC: JVIRT 19:21 | DX: U07.1 COVID-19 (principal) | CPT/HCPCS: C9803; Q3014-GT; U0003; U0005 ==

== ENCOUNTER 2021-04-11 10:48 | Emergency (ER) | payer OTHER ==
[2021-04-11] MEDS ORDERED: ALPRAZolam 1 MG TABLET PO PRN (11:05)
[2021-04-11 11:11] VITALS: TEMP 98; BMI 21.6
[2021-04-11] MEDS ORDERED: ALPRAZolam 0.25 MG TABLET ONE (11:29)
[2021-04-11 11:56] VITALS: BP 105/73; PULSE 81
== END 2021-04-11 12:05 | disposition home or self-care (01) ==
LOC: FER 10:48
DX: F41.9 Anxiety disorder, unspecified (principal)
CPT/HCPCS: 93005; 99283-25

== ENCOUNTER 2021-07-25 17:27 | Emergency (ER) | payer OTHER ==
[2021-07-25 17:41] VITALS: BP 118/85; PULSE 84; TEMP 98; BMI 21.2
[2021-07-27 15:08] LABS: SARS-CoV-2 NAA Not Detected (Not Detected)
== END 2021-07-25 19:34 | disposition home or self-care (01) ==
LOC: FER 17:27
PROC: 2W3QX1Z Immobilization of Right Lower Leg using Splint (ICD-10-PCS; principal; 2021-07-25)
DX: M21.371 Foot drop, right foot (principal); S84.11XA Injury of peroneal nerve at lower leg level, right leg, initial encounter; W19.XXXA Unspecified fall, initial encounter
CPT/HCPCS: 29515; 71046-TC-FY; 73590-TC-RT-FY; 73610-TC-RT-FY; 73630-TC-RT-FY; 99284-25; C9803; U0003; U0005

== ENCOUNTER 2021-08-03 19:25 | Emergency (ER) | payer OTHER ==
[2021-08-03 19:38] VITALS: BP 126/91; PULSE 108; TEMP 98; BMI 21.6
== END 2021-08-03 20:41 | disposition home or self-care (01) ==
LOC: FER 19:25
DX: F41.9 Anxiety disorder, unspecified (principal)
CPT/HCPCS: 99283-25

== ENCOUNTER 2022-03-21 06:41 | Emergency (ER) | payer OTHER ==
[2022-03-21] MEDS ORDERED: IBUPROFEN 600 MG TABLET (FP) PO ONE ×2 (06:48→06:58)
[2022-03-21 07:07] VITALS: BMI 22.6
[2022-03-21] MEDS ORDERED: ACETAMINOPHEN 325 MG TABLET (FP) PO ONE (08:27)
[2022-03-21] MEDS ORDERED: ACETAMINOPHEN 325 MG TABLET (FP) ONE (08:35)
[2022-03-21 09:24] VITALS: BP 110/70; PULSE 81; RESP 18; TEMP 98.3
== END 2022-03-21 09:37 | disposition home or self-care (01) ==
LOC: FER 06:41
DX: Z04.3 Encounter for examination and observation following other accident (principal); Y04.0XXA Assault by unarmed brawl or fight, initial encounter; Y92.9 Unspecified place or not applicable
CPT/HCPCS: 70486-TC; 81025; 99284-25

== ENCOUNTER 2022-06-11 11:24 | Emergency (ER) | payer OTHER ==
[2022-06-11 11:50] VITALS: BP 137/90; PULSE 84; RESP 19; TEMP 98.8; BMI 21.6
[2022-06-11] MEDS ORDERED: ACETAMINOPHEN 325 MG TABLET (FP) PO ONE (12:08)
[2022-06-11] MEDS ORDERED: ACETAMINOPHEN 325 MG TABLET (FP) ONE (12:11)
== END 2022-06-11 12:50 | disposition home or self-care (01) ==
LOC: FER 11:24
DX: S62.356A Nondisplaced fracture of shaft of fifth metacarpal bone, right hand, initial encounter for closed fracture (principal); W01.198A Fall on same level from slipping, tripping and stumbling with subsequent striking against other object, initial encounter
CPT/HCPCS: 73130-TC-RT-FY; 99283-25

== ENCOUNTER 2022-08-14 18:16 | Emergency (ER) | payer OTHER ==
[2022-08-14 18:29] VITALS: BP 115/89; PULSE 83; RESP 20; TEMP 99.7; BMI 21.6
[2022-08-14] MEDS ORDERED: ACETAMINOPHEN 500 MG TABLET (FP) PO ONE (19:16)
[2022-08-14] MEDS ORDERED: ACETAMINOPHEN 500 MG TABLET (FP) ONE (19:25)
[2022-08-14 19:38] LABS: HEMATOCRIT 39.6 % (32.4-45.2); HEMOGLOBIN 13.6 G/dL (10.7-15.3); MCH 35.3 pg (25.7-33.7); MCHC 34.4 g/dl (32.0-36.0); MEAN CELL VOLUME 102.6 fl (80-96); MEAN PLT VOLUME 6.5 fl (7.5-11.1); PLATELET COUNT 212.2 10^3/uL (134-434); RBC 3.86 10^6/uL (3.60-5.2); RDW 13.1 % (11.6-15.6); WHITE BLOOD COUNT 6.6 10^3/uL (4.0-10.8)
[2022-08-14] MEDS ORDERED: levETIRAcetam 500 MG/5 ML INJECTION VIAL IVPB ONE ×2 (19:42→19:43)
[2022-08-14 19:47] LABS: ALBUMIN 3.8 g/dl (3.4-5.0); BILIRUBIN,TOTAL 0.8 mg/dl (0.2-1); CALCIUM 8.4 mg/dl (8.5-10); CREATININE 0.7 mg/dl (0.55-1.3); MAGNESIUM 1.7 mg/dL (1.8-2.4); TOT PROT 6.6 g/dl (6.4-8.2)
[2022-08-14 21:08] LABS: OPIATES, URI NEGATIVE (NEGATIVE)
[2022-08-14 21:09] LABS: COCAINE, UR NEGATIVE (NEGATIVE); PHENCYCLIDINE,URINE NEGATIVE (NEGATIVE)
[2022-08-14 21:13] LABS: METHADONE, UR NEGATIVE (NEGATIVE); URINE AMPHETAMINES POSITIVE (NEGATIVE); URINE BARBITURATES NEGATIVE (NEGATIVE); URINE BENZODIAZEPINES POSITIVE (NEGATIVE)
== END 2022-08-14 22:30 | disposition home or self-care (01) ==
LOC: FER 18:16
PROC: 3E033GC Introduction of Other Therapeutic Substance into Peripheral Vein, Percutaneous Approach (ICD-10-PCS; principal; 2022-08-14)
DX: G40.89 Other seizures (principal)
CPT/HCPCS: 36415; 70450-TC; 80053; 80307; 81025; 83735; 84703; 85027; 99284-25

== ENCOUNTER 2023-04-03 17:32 | Emergency (ER) | payer OTHER ==
[2023-04-03] MEDS ORDERED: DIPHTH,PERTUSS(ACELL),TET 0.5 ML DISP.SYRIN IM ONE ×2 (17:39→17:47)
[2023-04-03] MEDS ORDERED: SILVER SULFADIAZINE 1% TOP CREAM 50 GM JAR TP ONE (17:42)
[2023-04-03 17:52] VITALS: BP 140/100; PULSE 95; RESP 16; TEMP 98.2; BMI 21.6
[2023-04-03] MEDS ORDERED: IBUPROFEN 600 MG TABLET (FP) PO ONE ×2 (18:22→18:25)
== END 2023-04-03 18:30 | disposition home or self-care (01) ==
LOC: FER 17:32
PROC: 3E0234Z Introduction of Serum, Toxoid and Vaccine into Muscle, Percutaneous Approach (ICD-10-PCS; principal; 2023-04-03)
DX: T23.231A Burn of second degree of multiple right fingers (nail), not including thumb, initial encounter (principal); T23.201A Burn of second degree of right hand, unspecified site, initial encounter; X15.0XXA Contact with hot stove (kitchen), initial encounter; Y93.89 Activity, other specified; Y92.9 Unspecified place or not applicable
CPT/HCPCS: 90471; 90715; 99283-25

== ENCOUNTER 2024-05-02 14:40 | Emergency (ER) | payer OTHER ==
[2024-05-02] MEDS ORDERED: KETOROLAC TROMETHAMINE 30 MG/1 ML VIAL ONE (15:23)
[2024-05-02] MEDS ORDERED: METHOCARBAMOL 500 MG TABLET ONE (15:23)
[2024-05-02] MEDS ORDERED: LIDOCAINE 5% TOPICAL PATCH ONE (15:23)
[2024-05-02] MEDS: LIDOCAINE 5% TOPICAL PATCH TP ONE (15:30)
[2024-05-02] MEDS: METHOCARBAMOL 500 MG TABLET PO ONE (15:30)
[2024-05-02] MEDS: KETOROLAC TROMETHAMINE 30 MG/1 ML VIAL IM ONE (15:30)
[2024-05-02 15:44] VITALS: BP 97/64; PULSE 84; TEMP 98.2; BMI 19.3
[2024-05-02 17:09] VITALS: RESP 18
[2024-05-02] MEDS ORDERED: LIDOCAINE PATCH REMOVAL MC ONE (22:00)
== END 2024-05-02 17:06 | disposition home or self-care (01) ==
LOC: FER 14:40
PROC: 3E0133Z Introduction of Anti-inflammatory into Subcutaneous Tissue, Percutaneous Approach (ICD-10-PCS; principal; 2024-05-02)
DX: S22.31XA Fracture of one rib, right side, initial encounter for closed fracture (principal); R10.11 Right upper quadrant pain; W01.198A Fall on same level from slipping, tripping and stumbling with subsequent striking against other object, initial encounter
CPT/HCPCS: 71250-TC; 76705-TC; 99284-25

== ENCOUNTER 2025-01-04 12:54 | Emergency (ER) | payer OTHER ==
[2025-01-04 13:08] VITALS: BP 129/84; PULSE 71; RESP 19; TEMP 98.6; BMI 17.4
[2025-01-04] MEDS ORDERED: LORazepam 2 MG/ML SDV VIAL ONE (13:38)
[2025-01-04] MEDS ORDERED: ACETAMINOPHEN INJECTION 100 ML ONE (13:39)
[2025-01-04] MEDS ORDERED: METOCLOPRAMIDE HCL INJECTION 10 MG/2 ML VIAL ONE (13:39)
[2025-01-04] MEDS: LACTATED RINGERS SOLUTION 1000 ML INFUS.BAG IV ONE (13:50)
[2025-01-04] MEDS: METOCLOPRAMIDE HCL INJECTION 10 MG/2 ML VIAL IVPUSH ONE (13:50)
[2025-01-04] MEDS: ACETAMINOPHEN 1000 MG/100 ML BAG IVPB ONE (13:51)
[2025-01-04 14:08] LABS: INR 0.98 (0.83-1.09); PROTHROMBIN TIME (PATIENT) 10.9 SEC (9.7-13.0)
[2025-01-04 14:10] LABS: ACTIVATED PTT 29.2 SECONDS (25.2-36.5)
[2025-01-04 14:12] LABS: ABSOLUTE IMMATURE GRANULOCYTES 0.01 x10^3/uL (0.0-0.031); BASOPHILS # 0.02 x10^3/uL (0.01-0.08); EOSINOPHIL % 0.1 % (0.7-5.8); EOSINOPHILS # 0.01 x10^3/uL (0.04-0.36); HEMATOCRIT 43.9 % (34.1-44.9); HEMOGLOBIN 14.9 g/dL (11.2-15.7); MCHC 33.9 g/dl (32.2-35.5); MEAN CELL VOLUME 100.2 fl (79.4-94.8); MEAN PLT VOLUME 9.1 fl (9.4-12.3); MONOCYTE # 0.32 x10^3/uL (0.24-0.86); MONOCYTE % 3.4 % (4.7-12.5); PLATELET COUNT 264 x10^3/uL (182-369)
[2025-01-04 14:25] LABS: ALBUMIN 4.9 g/dl (3.4-5.0); BILIRUBIN,TOTAL 0.8 mg/dl (0.2-1); CALCIUM 9.1 mg/dl (8.5-10.1); CREATININE 0.7 mg/dl (0.6-1.3); POTASSIUM 3.8 mmol/L (3.5-5.1); TOT PROT 7.1 g/dl (6.4-8.2)
[2025-01-04 16:18] LABS: HCV DIAGNOSTIC IN-HOUSE W/RFLX NON-REACTIVE (NONREACTIVE)
[2025-01-04 16:19] LABS: HIV INTERPRETATION NEGATIVE (NEGATIVE)
== END 2025-01-04 16:45 | disposition home or self-care (01) ==
LOC: FER 12:54
PROC: 3E033NZ Introduction of Analgesics, Hypnotics, Sedatives into Peripheral Vein, Percutaneous Approach (ICD-10-PCS; principal; 2025-01-04)
PROC: 3E033NZ Introduction of Analgesics, Hypnotics, Sedatives into Peripheral Vein, Percutaneous Approach (ICD-10-PCS; 2025-01-04)
PROC: 3E033GC Introduction of Other Therapeutic Substance into Peripheral Vein, Percutaneous Approach (ICD-10-PCS; 2025-01-04)
DX: S00.11XA Contusion of right eyelid and periocular area, initial encounter (principal); F41.9 Anxiety disorder, unspecified; R11.10 Vomiting, unspecified; W19.XXXA Unspecified fall, initial encounter
CPT/HCPCS: 0241U-QW; 36415; 70450-TC; 80053; 81003; 81015; 84439; 84443; 84484; 84703; 85025; 85610; 85730; 86803; 87389; 99285-25